=== PATIENT | female | born 1950 | race Caucasian/White ===

== ENCOUNTER → 2017-03-17 | Outpatient (CLI) | payer MEDICARE ==
[2017-03-17 12:16] LABS: ABSOLUTE BASOPHILS # (AUTO) 0.1 10^3/uL (0.0-0.2); ABSOLUTE EOSINOPHILS # (AUTO) 0.2 10^3/uL (0.0-0.6); ABSOLUTE LYMPHOCYTES (AUTO) 1.7 10^3/uL (0.5-4.7); ABSOLUTE MONOCYTES (AUTO) 0.5 10^3/uL (0.1-1.4); ABSOLUTE NEUT (AUTO) 3.5 10^3/uL (1.7-8.2); BASOPHILS % (AUTO) 0.9 % (0-2); EOSINOPHILS % (AUTO) 3.4 % (0-6); HEMATOCRIT 42.2 % (36.0-47.0); HEMOGLOBIN 13.3 g/dL (12.0-15.5); HGB HCT DIFFERENCE -2.3; LYMPHOCYTES % (AUTO) 28.7 % (13-45); MEAN CORPUSCULAR HEMOGLOBIN 28.5 pg (27.0-33.4); MEAN CORPUSCULAR HGB CONC 31.4 g/dL (32.0-36.0); MEAN CORPUSCULAR VOLUME 91 fl (80-97); MONOCYTES % (AUTO) 8.9 % (3-13); RED BLOOD COUNT 4.65 10^6/uL (3.72-5.28); RED CELL DISTRIBUTION WIDTH 14.1 % (11.5-14.0); SEGMENTED NEUTROPHILS % (AUTO) 58.1 % (42-78); WHITE BLOOD COUNT 6.1 10^3/uL (4.0-10.5)
[2017-03-17 12:25] LABS: APPEARANCE,URINE SLIGHTLY-CLOUDY; BILIRUBIN,URINE NEGATIVE (NEGATIVE); GLUCOSE, URINE NEGATIVE (NEGATIVE); KETONES,URINE NEGATIVE (NEGATIVE); LEUKOCYTE ESTERASE,URINE NEGATIVE (NEGATIVE); NITRITE,URINE NEGATIVE (NEGATIVE); PROTEIN,URINE NEGATIVE (NEGATIVE); URINE SPECIFIC GRAVITY 1.016; UROBILINOGEN,URINE NEGATIVE mg/dL (<2.0)
--- NOTE | 2017-03-17 12:34 | RADIOLOGY REPORT (SQ) ---
EXAM DESCRIPTION: CHEST PA/LATERAL COMPLETED DATE/TIME: 03/17/2017 11:10 am REASON FOR STUDY: ENCOUNTER FOR OTHER PREPROCEDURAL EXAMINATION COMPARISON: 04/18/2015 EXAM PARAMETERS: NUMBER OF VIEWS: two views TECHNIQUE: Digital Frontal and Lateral radiographic views of the chest acquired. RADIATION DOSE: NA LIMITATIONS: none FINDINGS: LUNGS AND PLEURA: No opacities, masses or pneumothorax. No pleural effusion. MEDIASTINUM AND HILAR STRUCTURES: No masses or contour abnormalities. HEART AND VASCULAR STRUCTURES: Heart normal size. No evidence for failure. BONES: No acute findings. HARDWARE: None in the chest. OTHER: No other significant finding. IMPRESSION: NO SIGNIFICANT RADIOGRAPHIC FINDING IN THE CHEST. TECHNICAL DOCUMENTATION: JOB ID: [id number] [employer]- All Rights Reserved
--- NOTE | 2017-03-17 12:45 | EKG REPORT ---
SEVERITY:- NORMAL ECG - SINUS RHYTHM : Confirmed by: Annel Pride MD 17-Mar-2017 12:44:19
[2017-03-17 12:50] LABS: ANION GAP 10 (5-19); BLOOD UREA NITROGEN 37 mg/dL (7-20); CALCIUM 9.1 mg/dL (8.4-10.2); CARBON DIOXIDE 28 mmol/L (22-30); CHLORIDE 102 mmol/L (98-107); CREATININE RESULT 1.23 mg/dL (0.52-1.25); GLUCOSE 78 mg/dL (75-110); POTASSIUM 4.7 mmol/L (3.6-5.0); SODIUM 140.4 mmol/L (137-145)
== END ==
LOC: OD 10:27
PROVIDERS: ATTEND Orthopaedic Surgery
DX: Z01.818 Encounter for other preprocedural examination (principal)
CPT/HCPCS: 36415; 71020; 80048; 81001; 85025; 93005; 93010

== ENCOUNTER 2017-04-13 05:30 | Inpatient (IN) | payer MEDICARE, OTHER ==
[~2017-04-13 05:30] MED LIST: BUPIVACAINE INJ/PF LIPOSOME/PF 266 MG/20 ML SDV IJ PRN; CEFAZOLIN INJ 1 GM VIAL IV PRN; IBUPROFEN 800 MG/NS 250 ML IV PRN; LACTATED RINGERS 1000 ML IV PRN; LANSOPRAZOLE 15 MG TAB.RAP.DR PO PRN; LIDOCAINE 0.5% INJ-PF (5 MG/ML) 50 ML SDV SUBCUT PRN; OXYCODONE HCL SR 10 MG TABLET PO PRN; SCOPOLAMINE HYDROBROMIDE 1.5 MG PATCH.TD72 TOP PRN; VANCOMYCIN HCL 1,000 MG in DEXTROSE 5%-WATER 250 ML IV PRN
[2017-04-13] MEDS ORDERED: TRANEXAMIC ACID INJ/PF 1,000 MG/10 ML SDV IV ONE ×3 (06:51→10:00)
[2017-04-13] MEDS ORDERED: PROPOFOL INJ 200 MG/20 ML VIAL IV ONE (06:51)
[2017-04-13] MEDS ORDERED: MORPHINE SULFATE 10 MG/ML INJ ONE (06:51)
[2017-04-13] MEDS ORDERED: MIDAZOLAM 2 MG/2 ML INJ ONE (06:51)
[2017-04-13] MEDS ORDERED: THROMBIN (BOVINE) 5000 UNIT EPITAXIS KIT ONE (06:56)
[2017-04-13] MEDS ORDERED: THROMBIN (BOVINE) TOPICAL 20000 UNIT VIAL ONE (06:56)
[2017-04-13] MEDS ORDERED: BUPIVACAINE INJ/PF LIPOSOME/PF 266 MG/20 ML SDV ONE (06:56)
[2017-04-13] MEDS ORDERED: PROMETHAZINE HCL INJ 25 MG/1 ML VIAL IV PRN (07:59)
[2017-04-13] MEDS ORDERED: DIPHENHYDRAMINE HCL 50 MG/ML VIAL IV PRN ×2 (07:59→08:42)
[2017-04-13] MEDS ORDERED: FENTANYL CITRATE INJ/PF 100 MCG/2 ML AMPUL IV PRN ×3 (07:59)
[2017-04-13] MEDS ORDERED: MORPHINE SULFATE 10 MG/ML INJ IV PRN ×3 (07:59→08:42)
[2017-04-13] MEDS ORDERED: ONDANSETRON HCL INJ/PF 4 MG/2 ML SDV IV PRN ×3 (07:59→10:44)
[2017-04-13] MEDS ORDERED: MEPERIDINE HCL/PF INJ 25 MG/1 ML DISP.SYRIN IV PRN (07:59)
--- NOTE | 2017-04-13 08:41 | Operative Report ---
Operative Report DATE OF SURGERY: 04/13/17 PREOPERATIVE DIAGNOSIS: Left knee arthritis OPERATION: Left knee arthroplasty SURGEON: NOHEMI CHEUNG ANESTHESIA: Spinal TISSUE REMOVED OR ALTERED: Bone to pathology ESTIMATED BLOOD LOSS: 150 PROCEDURE: Implants used: Femur: Maribeth triathlon #6 CR femur Tibia: 6 tibia Tibial liner: 11 mm CS insert Patella: 32 mm oval patella Procedure with the patient supine on the operating table the left the limb is prepped and draped in a sterile fashion. The limb was elevated for exsanguination and the tourniquet inflated to 280 torr. A standard midline median parapatellar approach the knee is taken. Access is gained to the femoral canal through the intercondylar notch. Intramedullary alignment instrumentation used to resect 10 mm of distal femur in 5 of valgus. Sizing guide indicated a size 6 femur. Appropriate cutting jig is then used to fashion anterior posterior and chamfer cuts. A trial reduction femurs performed and this is judged to be adequate. Attention was next turned to the tibia. Using an extra medullary alignment system 9 millimeters was resected off the lateral tibial plateau. This is sized to a size 6 tibia. A trial reduction was now performed with a 6 femur and a 6 tibia using a 11 millimeters spacer. It is full extension and central patellofemoral tracking. The articular surface the patella was next resected using an oscillating saw. All trial implants were removed. Polymethylmethacrylate is mixed and used to cement the above implants in place. On adequate curing the cement excess cement was removed the tourniquet was deflated hemostasis obtained the wound is then closed in layers using interrupted Vicryl followed by berenice. A sterile compressive dressing was applied and the patient returned to recovery room in satisfactory condition.
[2017-04-13] MEDS ORDERED: MAG HYDROX/AL HYDROX/SIMETH SUSP 30 ML UDCUP PO PRN ×2 (08:42→10:42)
[2017-04-13] MEDS ORDERED: RINGERS SOLUTION,LACTATED 1,000 ML IV PRN (08:42)
[2017-04-13] MEDS ORDERED: MORPHINE SULFATE 10 MG/ML INJ IM PRN (08:42)
[2017-04-13] MEDS ORDERED: ACETAMINOPHEN 325 MG TABLET PO PRN (08:42)
[2017-04-13] MEDS ORDERED: ZOLPIDEM TARTRATE 5 MG TABLET PO PRN (08:42)
[2017-04-13] MEDS ORDERED: ONDANSETRON 4 MG TAB.RAPDIS PO PRN ×2 (08:42→10:44)
--- NOTE | 2017-04-13 09:52 | RADIOLOGY REPORT (SQ) ---
EXAM DESCRIPTION: KNEE LEFT 2 VIEWS COMPLETED DATE/TIME: 04/13/2017 9:10 am REASON FOR STUDY: Post OP -Long Cassette in PACU M17.12 UNILATERAL PRIMARY OSTEOARTHRITIS, LEFT KNE E COMPARISON: 09/10/2015 NUMBER OF VIEWS: Two view(s). TECHNIQUE: Digital radiographic images of the left knee post-procedure. LIMITATIONS: None. FINDINGS: BONES: No worrisome or unexpected findings post-procedure. DEVICE: Total knee arthroplasty. SOFT TISSUES: No worrisome findings. Expected postoperative soft tissue changes. IMPRESSION: Status post left total knee replacement TECHNICAL DOCUMENTATION: JOB ID: [id number] [employer]- All Rights Reserved
[2017-04-13] MEDS: OXYBUTYNIN CHLORIDE 5 MG TABLET PO SCH ×2 (10:23→17:19)
[2017-04-13] MEDS: LISINOPRIL 10 MG TABLET PO SCH (10:23)
[2017-04-13] MEDS: OXYCODONE HCL SR 10 MG TABLET PO SCH ×3 (10:55→21:11)
[2017-04-13] MEDS: SENNOSIDES/DOCUSATE 8.6-50 MG 1 EACH TABLET PO SCH ×2 (10:55→17:18)
[2017-04-13] MEDS: PRENATAL VITAMIN W-O CA NO5/FE FUMARATE/FA CAPSULE PO SCH (10:55)
[2017-04-13] MEDS: MORPHINE SULFATE 10 MG/ML INJ IV PRN ×3 (12:49→21:07)
[2017-04-13] MEDS: IBUPROFEN 800 MG in NORMAL SALINE 250 ML IV SCH ×2 (14:05→21:06)
[2017-04-13] MEDS: OXYCODONE HCL IR 5 MG TABLET PO PRN (17:19)
[2017-04-13] MEDS ORDERED: (PENDING PHARMACY ID) (Lovastatin [Mevacor] 10 MG) PO SCH (18:00)
[2017-04-13] MEDS ORDERED: VANCOMYCIN HCL 1,000 MG in DEXTROSE 5%-WATER 250 ML IV ONE (21:00)
[2017-04-13] MEDS: RIVAROXABAN 10 MG TABLET PO SCH (21:07)
[2017-04-14] MEDS: LANSOPRAZOLE 30 MG TAB.RAP.DR PO SCH (05:52)
[2017-04-14] MEDS: IBUPROFEN 800 MG in NORMAL SALINE 250 ML IV SCH ×3 (05:53→21:23)
[2017-04-14 07:06] LABS: HEMATOCRIT 38.3 % (36.0-47.0); HEMOGLOBIN 12.4 g/dL (12.0-15.5); HGB HCT DIFFERENCE -1.1; MEAN CORPUSCULAR HEMOGLOBIN 29.2 pg (27.0-33.4); MEAN CORPUSCULAR HGB CONC 32.4 g/dL (32.0-36.0); MEAN CORPUSCULAR VOLUME 90 fl (80-97); RED BLOOD COUNT 4.25 10^6/uL (3.72-5.28); RED CELL DISTRIBUTION WIDTH 13.9 % (11.5-14.0); WHITE BLOOD COUNT 8.4 10^3/uL (4.0-10.5)
[2017-04-14 07:34] LABS: ANION GAP 10 (5-19); BLOOD UREA NITROGEN 29 mg/dL (7-20); CALCIUM 8.7 mg/dL (8.4-10.2); CARBON DIOXIDE 26 mmol/L (22-30); CHLORIDE 101 mmol/L (98-107); CREATININE RESULT 1.24 mg/dL (0.52-1.25); GLUCOSE 129 mg/dL (75-110); POTASSIUM 5.1 mmol/L (3.6-5.0); SODIUM 136.9 mmol/L (137-145)
--- NOTE | 2017-04-14 07:54 | PDOC PROGRESS REPORT ---
Subjective Progress Note for:: 04/14/17 Subjective:: Complains of expected discomfort Physical Exam Vital Signs: Temp Pulse Resp BP Pulse Ox 36.7 C 81 18 112/64 97 04/14/17 03:27 04/14/17 03:27 04/14/17 03:27 04/14/17 03:27 04/14/17 03:27 Intake & Output 04/13/17 04/14/17 04/15/17 06:59 06:59 06:59 Intake Total 0 5850 Output Total 3380 Balance 0 2470 Weight 160.9 kg General appearance: PRESENT: mild distress, obese Head exam: PRESENT: normocephalic Eye exam: PRESENT: EOMI Respiratory exam: PRESENT: unlabored Cardiovascular exam: PRESENT: RRR Pulses: PRESENT: +1 pedal pulses bilateral Vascular exam: PRESENT: normal capillary refill GI/Abdominal exam: PRESENT: soft Rectal exam: PRESENT: deferred Extremities exam: PRESENT: other - Left lower extremity dressing is clean dry and intact. Pedal edema. Distal neurovascular examination is intact. Neurological exam: PRESENT: alert, awake, oriented to person, oriented to place , oriented to time, oriented to situation. ABSENT: motor sensory deficit Psychiatric exam: PRESENT: appropriate affect, normal mood. ABSENT: homicidal ideation, suicidal ideation Skin exam: PRESENT: dry, intact, warm. ABSENT: cyanosis, rash Results Laboratory Results: 04/14/17 06:56 04/14/17 06:56 04/14/17 04/14/17 06:56 06:56 WBC 8.4 RBC 4.25 Hgb 12.4 Hct 38.3 MCV 90 MCH 29.2 MCHC 32.4 RDW 13.9 Plt Count 187 Sodium 136.9 L Potassium 5.1 H Chloride 101 Carbon Dioxide 26 Anion Gap 10 BUN 29 H Creatinine 1.24 Est GFR ( Amer) 52 L Est GFR (Non-Af Amer) 43 L Glucose 129 H Calcium 8.7 Impressions: Knee X-Ray 04/13/17 08:43 IMPRESSION: Status post left total knee replacement Status: Imported from PACS Assessment & Plan - Diagnosis (1) Arthritis of knee, left Is this a current diagnosis for this admission?: YesPlan: 6-year-old white female postop day 1 from left knee arthroplasty.. Plan for physical therapy today and anticipate discharge home tomorrow with home health nursing. - Time Time Spent with patient: 15-24 minutes Anticipated discharge: Home with Homehealth Within: within 24 hours
[2017-04-14] MEDS ORDERED: (PENDING PHARMACY ID) (Lisinopril [Lisinopril] 20 MG) PO SCH (08:00)
[2017-04-14] MEDS: OXYCODONE HCL IR 5 MG TABLET PO PRN ×2 (08:51→15:28)
[2017-04-14] MEDS: MONTELUKAST SODIUM 10 MG TABLET PO SCH (08:52)
[2017-04-14] MEDS: OXYCODONE HCL SR 10 MG TABLET PO SCH ×2 (10:11→21:21)
[2017-04-14] MEDS: SENNOSIDES/DOCUSATE 8.6-50 MG 1 EACH TABLET PO SCH ×2 (10:12→17:40)
[2017-04-14] MEDS: PRENATAL VITAMIN W-O CA NO5/FE FUMARATE/FA CAPSULE PO SCH (10:12)
[2017-04-14] MEDS: LISINOPRIL 10 MG TABLET PO SCH (10:13)
[2017-04-14] MEDS: OXYBUTYNIN CHLORIDE 5 MG TABLET PO SCH ×2 (10:19→17:41)
[2017-04-14] MEDS: MORPHINE SULFATE 10 MG/ML INJ IV PRN (13:32)
[2017-04-14] MEDS: RIVAROXABAN 10 MG TABLET PO SCH (21:21)
[2017-04-15] MEDS: IBUPROFEN 800 MG in NORMAL SALINE 250 ML IV SCH ×2 (05:05→15:11)
[2017-04-15] MEDS: LANSOPRAZOLE 30 MG TAB.RAP.DR PO SCH (05:56)
[2017-04-15 06:30] LABS: HEMATOCRIT 34.3 % (36.0-47.0); HEMOGLOBIN 11.2 g/dL (12.0-15.5); HGB HCT DIFFERENCE -0.7; MEAN CORPUSCULAR HEMOGLOBIN 28.9 pg (27.0-33.4); MEAN CORPUSCULAR HGB CONC 32.7 g/dL (32.0-36.0); MEAN CORPUSCULAR VOLUME 88 fl (80-97); RED BLOOD COUNT 3.88 10^6/uL (3.72-5.28); RED CELL DISTRIBUTION WIDTH 14.1 % (11.5-14.0); WHITE BLOOD COUNT 8.6 10^3/uL (4.0-10.5)
--- NOTE | 2017-04-15 07:36 | PDOC PROGRESS REPORT ---
Subjective Progress Note for:: 04/15/17 Subjective:: Patient complains of pain Physical Exam Vital Signs: Temp Pulse Resp BP Pulse Ox 37.1 C 83 19 115/80 95 04/14/17 23:22 04/14/17 23:22 04/14/17 23:22 04/14/17 23:22 04/14/17 23:22 Intake & Output 04/14/17 04/15/17 04/16/17 06:59 06:59 06:59 Intake Total 5850 891 Output Total 3380 Balance 2470 891 Weight 160.9 kg General appearance: PRESENT: obese Head exam: PRESENT: normocephalic Eye exam: PRESENT: EOMI Respiratory exam: PRESENT: unlabored Cardiovascular exam: PRESENT: RRR Pulses: PRESENT: +1 pedal pulses bilateral Vascular exam: PRESENT: normal capillary refill GI/Abdominal exam: PRESENT: soft Rectal exam: PRESENT: deferred Extremities exam: PRESENT: pedal edema, other - Left knee picot dressing is clean dry and intact. There is moderate pedal edema. Distal neurovascular examination is intact. Neurological exam: PRESENT: alert, awake, oriented to person, oriented to place , oriented to time, oriented to situation. ABSENT: motor sensory deficit Psychiatric exam: PRESENT: appropriate affect, normal mood. ABSENT: homicidal ideation, suicidal ideation Skin exam: PRESENT: dry, intact, warm. ABSENT: cyanosis, rash Results Laboratory Results: 04/15/17 06:18 04/14/17 06:56 04/14/17 04/15/17 06:56 06:18 WBC 8.6 RBC 3.88 Hgb 11.2 L Hct 34.3 L MCV 88 MCH 28.9 MCHC 32.7 RDW 14.1 H Plt Count 164 Sodium 136.9 L Potassium 5.1 H Chloride 101 Carbon Dioxide 26 Anion Gap 10 BUN 29 H Creatinine 1.24 Est GFR ( Amer) 52 L Est GFR (Non-Af Amer) 43 L Glucose 129 H Calcium 8.7 Impressions: Knee X-Ray 04/13/17 08:43 IMPRESSION: Status post left total knee replacement Assessment & Plan - Diagnosis (1) Arthritis of knee, left Is this a current diagnosis for this admission?: YesPlan: The 6-year-old white female postop day #2 status post left knee arthroplasty. The patient's made slow steady progress with physical therapy and ambulated 20 feet yesterday. Hematocrit remains above 34%. - Plan Summary Plan Summary: Patient discharged home with home health nursing and home health physical therapy when the patient's reached acceptable functional levels
[2017-04-15] MEDS: OXYBUTYNIN CHLORIDE 5 MG TABLET PO SCH ×2 (10:56→18:20)
[2017-04-15] MEDS: PRENATAL VITAMIN W-O CA NO5/FE FUMARATE/FA CAPSULE PO SCH (10:56)
[2017-04-15] MEDS: MONTELUKAST SODIUM 10 MG TABLET PO SCH (10:57)
[2017-04-15] MEDS: LISINOPRIL 10 MG TABLET PO SCH (10:58)
[2017-04-15] MEDS: OXYCODONE HCL IR 5 MG TABLET PO PRN (10:59)
[2017-04-15] MEDS: SENNOSIDES/DOCUSATE 8.6-50 MG 1 EACH TABLET PO SCH ×2 (10:59→18:20)
[2017-04-15] MEDS: MORPHINE SULFATE 10 MG/ML INJ IV PRN (15:05)
[2017-04-15] MEDS: RIVAROXABAN 10 MG TABLET PO SCH (21:42)
[2017-04-16] MEDS: LANSOPRAZOLE 30 MG TAB.RAP.DR PO SCH (05:18)
[2017-04-16 06:39] LABS: HEMATOCRIT 32.2 % (36.0-47.0); HEMOGLOBIN 10.6 g/dL (12.0-15.5); HGB HCT DIFFERENCE -0.4; MEAN CORPUSCULAR HEMOGLOBIN 29.1 pg (27.0-33.4); MEAN CORPUSCULAR VOLUME 88 fl (80-97); RED BLOOD COUNT 3.65 10^6/uL (3.72-5.28); RED CELL DISTRIBUTION WIDTH 13.9 % (11.5-14.0); WHITE BLOOD COUNT 7.3 10^3/uL (4.0-10.5)
--- NOTE | 2017-04-16 07:04 | PDOC DISCHARGE SUMMARY ---
General - Admit/Disc Date/PCP Admission Date/Primary Care Provider: 04/13/17 05:30 Discharge Date: 04/16/17 - Discharge Diagnosis (1) Arthritis of knee, left Is this a current diagnosis for this admission?: Yes - Additional Information Resuscitation Status: Full Code Discharge Diet: As Tolerated, Regular Discharge Activity: Balance Activity w/Rest, No Driving, No tub bath Home Medications: Albuterol Sulfate [Albuterol Sulfate 2.5mg/3 mL] 1 vial IH Q4 PRN 11/01/14 Lisinopril 20 mg PO QAM 11/01/14 Lovastatin [Mevacor] 10 mg PO QPM 11/01/14 Oxybutynin Chloride 5 mg PO BIDP PRN 11/01/14 Meloxicam 7.5 mg PO QAM 04/16/15 Budesonide/Formoterol Fumarate [Symbicort HFA 80-4.5 mcg Inhaler 6.9 gm] 2 puff IH BID 04/01/17 Montelukast Sodium [Singulair 10 mg Tablet] 10 mg PO QAM 04/01/17 Econazole Nitrate [Spectazole] 1 applic TP BID 04/13/17 Oxycodone HCl [Oxy-Ir 5 mg Tablet] 5 mg PO Q6HP PRN #0 tablet 04/16/17 Rivaroxaban [Xarelto 10 mg Tablet] 10 mg PO QHS #0 tablet 04/16/17 History of Present Illness History of Present Illness: LILIA HERNANDEZ is a 66 year old female with left knee pain and functional disability secondary osteoarthritis. The patient is admitted for the left a elective left knee arthroplasty. Hospital Course Hospital Course: Through the operating room where she undergoes uncomplicated left knee arthroplasty. She is returned to the floor in satisfactory condition. She makes progress with physical therapy and weightbearing as tolerated basis patient examining 60 feet on the postop day 2. Physical Exam Vital Signs: Temp Pulse Resp BP Pulse Ox 37.0 C 95 19 96/49 L 97 04/15/17 23:05 04/15/17 23:05 04/15/17 23:05 04/15/17 23:05 04/15/17 23:05 Intake & Output 04/15/17 04/16/17 04/17/17 06:59 06:59 06:59 Intake Total 891 1444 Output Total 1185 Balance 891 259 General appearance: PRESENT: no acute distress, obese Head exam: PRESENT: normocephalic Eye exam: PRESENT: EOMI Respiratory exam: PRESENT: unlabored Cardiovascular exam: PRESENT: RRR Pulses: PRESENT: +1 pedal pulses bilateral Vascular exam: PRESENT: normal capillary refill GI/Abdominal exam: PRESENT: soft Rectal exam: PRESENT: deferred Extremities exam: PRESENT: other - Left lower extremity picot dressing with minor cold drainage. Minimal pedal edema. Distal neurovascular examination is intact. Neurological exam: PRESENT: alert, awake, oriented to person, oriented to place , oriented to time, oriented to situation. ABSENT: motor sensory deficit Psychiatric exam: PRESENT: appropriate affect, normal mood. ABSENT: homicidal ideation, suicidal ideation Skin exam: PRESENT: dry, intact, warm. ABSENT: cyanosis, rash Results Laboratory Results: 04/14/17 06:56 Impressions: Knee X-Ray 04/13/17 08:43 IMPRESSION: Status post left total knee replacement Status: Imported from PACS Plan Discharge Plan: Discharge home with home health nursing, home health physical therapy, wheeled walker, bedside commode. Left knee picot dressing can be changed by the visiting nurse service on postop day 7 and replaced with an OpSite. Follow-up will be with Dr. Aguilar and [facility] for surgery in 2 weeks for staple removal.
[2017-04-16] MEDS: MONTELUKAST SODIUM 10 MG TABLET PO SCH (08:09)
[2017-04-16 08:31] VITALS: BP 115/75
[2017-04-16] MEDS: SENNOSIDES/DOCUSATE 8.6-50 MG 1 EACH TABLET PO SCH (09:27)
[2017-04-16] MEDS: OXYBUTYNIN CHLORIDE 5 MG TABLET PO SCH (09:27)
[2017-04-16] MEDS: OXYCODONE HCL IR 5 MG TABLET PO PRN (09:27)
[2017-04-16] MEDS: PRENATAL VITAMIN W-O CA NO5/FE FUMARATE/FA CAPSULE PO SCH (09:27)
[2017-04-16] MEDS: LISINOPRIL 10 MG TABLET PO SCH (09:27)
[2017-04-16] MEDS ORDERED: ZOLPIDEM TARTRATE 5 MG TABLET PO PRN (14:30)
[2017-04-16] MEDS ORDERED: MORPHINE SULFATE 10 MG/ML INJ IV PRN (14:30)
[2017-04-16] MEDS ORDERED: MORPHINE SULFATE 10 MG/ML INJ IM PRN (14:31)
== END 2017-04-16 10:50 | disposition home health service (06) | DRG 470 ==
LOC: INOR 05:30 → 4S 10:09
PROVIDERS: ADMIT Orthopaedic Surgery; ATTEND Orthopaedic Surgery
PROC: 0SRD0J9 Replacement of Left Knee Joint with Synthetic Substitute, Cemented, Open Approach (ICD-10-PCS; principal; 2017-04-13 07:30)
DX: M17.12 Unilateral primary osteoarthritis, left knee (principal); Z68.43 Body mass index [BMI] 50.0-59.9, adult; I10 Essential (primary) hypertension; E78.00 Pure hypercholesterolemia, unspecified; E66.9 Obesity, unspecified; Z96.651 Presence of right artificial knee joint
CPT/HCPCS: 01402; 36415; 80048; 85027; 88305; 88311; 94799; C9290; G8978-GP; G8979-GP; G8987-GO; G8988-GO; J0690; J1741; J2250; J2270; J2405; J2704; J3370; J3490; J7050; J7060; J7120

== ENCOUNTER 2017-04-27 06:39 | Inpatient (IN) | payer MEDICARE, OTHER ==
--- NOTE | 2017-04-27 07:06 | ER Document Report ---
ED General - General Stated Complaint: POST OP BLEEDING Time Seen by Provider: 04/27/17 06:50 Mode of Arrival: Medic Information source: Patient Notes: 66-year-old female who had knee replacement performed on the had berenice removed on the and is on Xarelto presents with complaints of bleeding from her left knee. Patient denies any fevers or chills admits to pain in the knee patient states she was placed on antibiotics by her surgeon is unsure of which one, stated it was in the bag but is not noted to be there Patient took her Xarelto today TRAVEL OUTSIDE OF THE [place] IN LAST 30 DAYS: No - HPI Onset: Just prior to arrival Onset/Duration: Sudden Quality of pain: Achy Severity: Mild Pain Level: 1 Associated symptoms: None Exacerbated by: Movement Relieved by: Denies Similar symptoms previously: Yes Recently seen / treated by doctor: Yes - Related Data Allergies/Adverse Reactions: aspirin [Aspirin] Allergy (Verified 04/01/17 11:41) Unsure Home Medications: Current Home Medications Hydrocodone Bit/Acetaminophen [Hydrocodon-Acetaminophen 5-325] 1 each PO Q6 PRN 04/27/17 [History] Past Medical History - Social History Smoking Status: Never Smoker Cigarette use (# per day): No Chew tobacco use (# tins/day): No Smoking Education Provided: No Family History: Reviewed & Not Pertinent - Past Medical History Cardiac Medical History: Reports: Hx Hypercholesterolemia, Hx Hypertension Denies: Hx Atrial Fibrillation, Hx Congestive Heart Failure, Hx Coronary Artery Disease, Hx Heart Attack, Hx Peripheral Vascular Disease, Hx Pulmonary Embolism, Hx Heart Murmur Pulmonary Medical History: Reports: Hx Asthma, Hx Bronchitis, Hx Sleep Apnea Denies: Hx COPD, Hx Pneumonia, Hx Respiratory Failure, Hx Tuberculosis Renal/ Medical History: Denies: Hx End Stage Renal Disease, Hx Kidney Stones, Hx Peritoneal Dialysis Malignancy Medical History: Denies: Hx Lung Cancer Musculoskeltal Medical History: Reports Hx Arthritis, Denies Hx Fibromyalgia, Denies Hx Muscular Dystrophy Traumatic Medical History: Reports: Hx Fractures - left? foot Past Surgical History: Reports: Hx Tonsillectomy. Denies: Hx Appendectomy, Hx Bowel Surgery, Hx Section, Hx Cholecystectomy, Hx Coronary Artery Bypass Graft, Hx Gastric Bypass Surgery, Hx Herniorrhaphy, Hx Hysterectomy, Hx Mastectomy, Hx Pacemaker, Hx Tubal Ligation - Immunizations Hx Diphtheria, Pertussis, Tetanus Vaccination: Yes Review of Systems - Review of Systems Notes: REVIEW OF SYSTEMS: CONSTITUTIONAL : Denies fever, chills, or sweats. Denies recent illness. EENT: Denies eye, ear, throat, or mouth pain or symptoms. Denies nasal or sinus congestion or discharge. Denies throat, tongue, or mouth swelling or difficulty swallowing. CARDIOVASCULAR: Denies chest pain. Denies palpitations or racing or irregular heart beat. Denies ankle edema. RESPIRATORY: Denies cough, cold, or chest congestion. Denies shortness of breath, difficulty breathing, or wheezing. GASTROINTESTINAL: Denies abdominal pain or distention. Denies nausea, vomiting , or diarrhea. Denies blood in vomitus, stools, or per rectum. Denies black, tarry stools. Denies constipation. GENITOURINARY: Denies difficulty urinating, painful urination, burning, frequency, blood in urine, or discharge. FEMALE GENITOURINARY: Denies vaginal bleeding, heavy or abnormal periods, irregular periods. Denies vaginal discharge or odor. MUSCULOSKELETAL: admits ot bleeding to knee SKIN: Denies rash, lesions or sores. HEMATOLOGIC : Denies easy bruising or bleeding. LYMPHATIC: Denies swollen, enlarged glands. NEUROLOGICAL: Denies confusion or altered mental status. Denies passing out or loss of consciousness. Denies dizziness or lightheadedness. Denies headache. Denies weakness or paralysis or loss of use of either side. Denies problems with gait or speech. Denies sensory loss, numbness, or tingling. Denies seizures. PSYCHIATRIC: Denies anxiety or stress. Denies depression, suicidal ideation, or homicidal ideation. ALL OTHER SYSTEMS REVIEWED AND NEGATIVE. PHYSICAL EXAMINATION: GENERAL: Well-appearing, well-nourished and in no acute distress. HEAD: Atraumatic, normocephalic. EYES: Pupils equal round and reactive to light, extraocular movements intact, conjunctiva are normal. ENT: Nares patent, oropharynx clear without exudates. Moist mucous membranes. NECK: Normal range of motion, supple without lymphadenopathy LUNGS: Breath sounds clear to auscultation bilaterally and equal. No wheezes rales or rhonchi. HEART: Regular rate and rhythm without murmurs ABDOMEN: Soft, nontender, nondistended abdomen. No guarding, no rebound. No masses appreciated. Female : deferred Musculoskeletal: left knee strips are in place, small amount of oozing noted, it is erythemetous and tender to palpation NEUROLOGICAL: Cranial nerves grossly intact. Normal speech, normal gait. Normal sensory, motor exams PSYCH: Normal mood, normal affect. SKIN: Warm, Dry, normal turgor, no rashes or lesions noted. Dictation was performed using [employer] voice recognition software Physical Exam - Vital signs Vitals: Temp Resp BP Pulse Ox 97.6 F 11 L 118/59 L 96 04/27/17 06:59 04/27/17 06:59 04/27/17 06:59 04/27/17 06:59 Course - Re-evaluation Re-evalutation: 04/27/17 07:06 Patient's bleeding is well controlled at this time, however my concern is if there is infectious process associated with this. Lab work is pending at this time 04/27/17 08:02 Labwork is consistent with an infectious process, white count was 26,000, there is a bandemia of 15. I spoke with Dr. Choi who will admit the patient to his service, he requests I hold off on antibiotics at this time - Vital Signs Vital signs: Temp Pulse Resp BP Pulse Ox 97.6 F 14 96/52 L 97 04/27/17 06:59 04/27/17 07:46 04/27/17 07:46 04/27/17 07:46 - Laboratory Result Diagrams: 04/27/17 07:00 04/27/17 07:00 Laboratory results interpreted by me: 04/27/17 04/27/17 07:00 07:00 WBC 25.7 H RBC 3.65 L Hgb 10.8 L Hct 32.1 L Seg Neuts % (Manual) 82 H Band Neutrophils % 15 H Lymphocytes % (Manual) 0 L Abs Neuts (Manual) 24.9 H Abs Lymphs (Manual) 0.0 L ESR 53 H BUN 31 H Creatinine 1.49 H Est GFR ( Amer) 42 L Est GFR (Non-Af Amer) 35 L Glucose 127 H C-Reactive Protein 68.3 H Total Protein 6.2 L Albumin 3.3 L - Diagnostic Test Radiology reviewed: Image reviewed, Reports reviewed Critical Care Note - Critical Care Note Total time excluding time spent on procedures (mins): 34 Comments: 34 minutes of critical care time spent in direct contact evaluating and reevaluating the patient, treating symptoms, reviewing labs and studies and speaking with family and consultants excluding any procedures Discharge - Discharge Clinical Impression: Bandemia, bleeding on xarelto Cellulitis Qualifiers: Site of cellulitis: extremity Site of cellulitis of extremity: lower extremity Laterality: left Qualified Code(s): L03.116 - Cellulitis of left lower limb Condition: Fair Disposition: ADMITTED INPATIENT Admitting Provider: doretha Unit Admitted: Surgical Floor
[2017-04-27 07:21] LABS: HEMATOCRIT 32.1 % (36.0-47.0); HEMOGLOBIN 10.8 g/dL (12.0-15.5); HGB HCT DIFFERENCE 0.3; MEAN CORPUSCULAR HEMOGLOBIN 29.7 pg (27.0-33.4); MEAN CORPUSCULAR HGB CONC 33.7 g/dL (32.0-36.0); MEAN CORPUSCULAR VOLUME 88 fl (80-97); RED BLOOD COUNT 3.65 10^6/uL (3.72-5.28); RED CELL DISTRIBUTION WIDTH 13.7 % (11.5-14.0); WHITE BLOOD COUNT 25.7 10^3/uL (4.0-10.5)
[2017-04-27] MEDS ORDERED: MORPHINE SULFATE 10 MG/ML INJ IV ONE (07:25)
[2017-04-27 07:35] LABS: ALANINE AMINOTRANSFERASE 27 U/L (9-52); ALBUMIN 3.3 g/dL (3.5-5.0); ALKALINE PHOSPHATASE 78 U/L (38-126); ANION GAP 13 (5-19); ASPARTATE AMINO TRANSFERASE 20 U/L (14-36); BILIRUBIN,DIRECT 0.3 mg/dL (0.0-0.4); BILIRUBIN,TOTAL 1.2 mg/dL (0.2-1.3); BLOOD UREA NITROGEN 31 mg/dL (7-20); C-REACTIVE PROTEIN 68.3 mg/L (<10.0); CALCIUM 8.8 mg/dL (8.4-10.2); CARBON DIOXIDE 25 mmol/L (22-30); CHLORIDE 100 mmol/L (98-107); CREATININE RESULT 1.49 mg/dL (0.52-1.25); GLUCOSE 127 mg/dL (75-110); POTASSIUM 4.4 mmol/L (3.6-5.0); SODIUM 137.8 mmol/L (137-145); TOTAL PROTEIN 6.2 g/dL (6.3-8.2)
[2017-04-27 07:52] LABS: BAND NEUTROPHILS % (MANUAL) 15 % (3-5); BASOPHILS % (MANUAL) 0 % (0-2); EOSINOPHILS % (MANUAL) 0 % (0-6); LYMPHOCYTES % (MANUAL) 0 % (13-45); TOTAL CELLS COUNTED 100
[2017-04-27 07:53] LABS: RBC MORPHOLOGY COMMENT NORMO-CYTIC/CHROMIC; TOXIC GRANULATION 1+
[2017-04-27 07:58] LABS: ERYTHROCYTE SEDIMENTATION RATE 53 mm/hr (0-30)
[2017-04-27] MEDS ORDERED: VANCOMYCIN HCL INJ 1000 MG VIAL IV ONE (07:59)
[2017-04-27] MEDS ORDERED: PIPERACILLIN/TAZOBACTAM 3.375 GM VIAL IV ONE (07:59)
--- NOTE | 2017-04-27 08:59 | RADIOLOGY REPORT (SQ) ---
EXAM DESCRIPTION: KNEE LEFT 4 VIEW COMPLETED DATE/TIME: 04/27/2017 8:30 am REASON FOR STUDY: post surgical COMPARISON: 04/13/2017 TECHNIQUE: Four views left knee LIMITATIONS: None. FINDINGS: No acute fractures. Arthroplasty in place similar to prior study. Soft tissue swelling a nd trace air noted. IMPRESSION: Postoperative changes. TECHNICAL DOCUMENTATION: JOB ID: [id number] [employer]- All Rights Reserved
--- NOTE | 2017-04-27 09:05 | PDOC H&P ---
History of Present Illness Admission Date/PCP: 04/27/17 08:26 History of Present Illness: LILIA HERNANDEZ is a 66 year old female who is status post left knee arthroplasty on April 13, 2017. Today she had her berenice removed. On Thursday she began to have spontaneous drainage from her wound. The emergency room today viable with prescription to her inflammatory cells and a bandemia 15% Past Medical History Cardiac Medical History: Reports: Hyperlipidema, Hypertension Denies: Atrial Fibrillation, Congestive Heart Failure, Coronary Artery Disease, Myocardial Infarction, Peripheral Vascular Disease, Pulmonary Embolism , Heart Murmur Pulmonary Medical History: Reports: Asthma, Bronchitis, Sleep Apnea Denies: Chronic Obstructive Pulmonary Disease (COPD), Pneumonia, Respiratory Failure, Tuberculosis Renal/ Medical History: Denies: End Stage Renal Disease Malignancy Medical History: Denies: Lung Cancer Musculoskeltal Medical History: Reports: Arthritis Denies: Fibromyalgia Past Surgical History Past Surgical History: Reports: Orthopedic Surgery - Rigoberto knee replacement, left knee replacement 04/13/17, Tonsillectomy Denies: Amputation, Appendectomy, Section, Cholecystectomy, Coronary Artery Bypass Graft, Gastric Bypass Surgery, Herniorrhaphy, Hysterectomy, Mastectomy, Pacemaker, Tubal Ligation Social History Information Source: Patient, Emergency Med Personnel, Office, [facility] Records Smoking Status: Never Smoker Hx Recreational Drug Use: No Hx Prescription Drug Abuse: No Family History Family History: Reviewed & Not Pertinent Parental Family History Reviewed: No Children Family History Reviewed: No Sibling(s) Family History Reviewed.: No Medication/Allergy Home Medications: Lisinopril 20 mg PO QAM 11/01/14 Lovastatin [Mevacor] 10 mg PO QPM 11/01/14 Oxybutynin Chloride 5 mg PO BIDP PRN 11/01/14 Budesonide/Formoterol Fumarate [Symbicort HFA 80-4.5 mcg Inhaler 6.9 gm] 2 puff IH BID 04/01/17 Montelukast Sodium [Singulair 10 mg Tablet] 10 mg PO QAM 04/01/17 Rivaroxaban [Xarelto 10 mg Tablet] 10 mg PO QHS #0 tablet 04/16/17 Hydrocodone Bit/Acetaminophen [Hydrocodon-Acetaminophen 5-325] 1 each PO Q6 PRN 04/27/17 Allergies/Adverse Reactions: aspirin [Aspirin] Allergy (Verified 04/01/17 11:41) Unsure Review of Systems All systems: as per PMH Physical Exam Vital Signs: Temp Pulse Resp BP Pulse Ox 36.4 C 11 L 112/61 96 04/27/17 06:59 04/27/17 08:30 04/27/17 08:30 04/27/17 08:30 General appearance: PRESENT: mild distress, obese Head exam: PRESENT: normocephalic Eye exam: PRESENT: EOMI Respiratory exam: PRESENT: unlabored Cardiovascular exam: PRESENT: RRR Vascular exam: PRESENT: normal capillary refill GI/Abdominal exam: PRESENT: soft Rectal exam: PRESENT: deferred Extremities exam: PRESENT: other Musculoskeletal exam: PRESENT: other Neurological exam: PRESENT: alert, awake, oriented to person, oriented to place , oriented to time, oriented to situation. ABSENT: motor sensory deficit Psychiatric exam: PRESENT: appropriate affect, normal mood. ABSENT: homicidal ideation, suicidal ideation Skin exam: PRESENT: dry, intact, warm. ABSENT: cyanosis, rash Results Impressions: Knee X-Ray 04/27/17 07:59 IMPRESSION: Postoperative changes. Status: Imported from PACS Assessment & Plan - Diagnosis (1) Bandemia Is this a current diagnosis for this admission?: Yes (2) Cellulitis Qualifiers: Site of cellulitis: extremity Site of cellulitis of extremity: lower extremity Laterality: left Qualified Code(s): L03.116 - Cellulitis of left lower limb Is this a current diagnosis for this admission?: YesPlan: Patient is now 14 days status post left knee arthroplasty with serous drainage from the wound remains afebrile but has a bandemia. Plan will be for admission on 23 hour outpatient basis and observation. Patient is not to receive antibiotics at this time. (3) Arthritis of knee, left Is this a current diagnosis for this admission?: No - Time Time Spent: 50 to 70 Minutes Anticipated discharge: Home with Homehealth Within: Other - Plan Summary Plan Summary: 23 hour outpatient admission for observation
[2017-04-27] MEDS ORDERED: ONDANSETRON HCL INJ/PF 4 MG/2 ML SDV IV PRN (10:05)
[2017-04-27] MEDS: OXYCODONE HCL IR 5 MG TABLET PO PRN (18:03)
[2017-04-27] MEDS: RINGERS SOLUTION,LACTATED 1,000 ML IV PRN (18:31)
[2017-04-27] MEDS ORDERED: ACETAMINOPHEN 325 MG TABLET PO PRN (20:51)
[2017-04-28] MEDS: OXYCODONE HCL IR 5 MG TABLET PO PRN ×3 (00:58→18:36)
[2017-04-28 05:40] LABS: ABSOLUTE LYMPHOCYTES (AUTO) 1.1 10^3/uL (0.5-4.7); ABSOLUTE MONOCYTES (AUTO) 0.7 10^3/uL (0.1-1.4); BASOPHILS % (AUTO) 0.1 % (0-2); HEMATOCRIT 30.4 % (36.0-47.0); HEMOGLOBIN 10.1 g/dL (12.0-15.5); HGB HCT DIFFERENCE -0.1; LYMPHOCYTES % (AUTO) 5.4 % (13-45); MEAN CORPUSCULAR HGB CONC 33.2 g/dL (32.0-36.0); MEAN CORPUSCULAR VOLUME 90 fl (80-97); MONOCYTES % (AUTO) 3.6 % (3-13); RED BLOOD COUNT 3.37 10^6/uL (3.72-5.28); RED CELL DISTRIBUTION WIDTH 13.4 % (11.5-14.0); SEGMENTED NEUTROPHILS % (AUTO) 90.9 % (42-78); WHITE BLOOD COUNT 19.7 10^3/uL (4.0-10.5)
[2017-04-28 06:18] LABS: ERYTHROCYTE SEDIMENTATION RATE 85 mm/hr (0-30)
--- NOTE | 2017-04-28 06:58 | PDOC PROGRESS REPORT ---
Subjective Progress Note for:: 04/28/17 Subjective:: "I am doing better" Physical Exam Vital Signs: Temp Pulse Resp BP Pulse Ox 37.2 C 99 20 111/50 L 96 04/27/17 23:00 04/27/17 23:00 04/27/17 23:00 04/27/17 23:00 04/27/17 23:00 Intake & Output 04/26/17 04/27/17 04/28/17 06:59 06:59 06:59 Intake Total 1957 Output Total 400 Balance 1557 Weight 145.1 kg General appearance: PRESENT: no acute distress Respiratory exam: PRESENT: unlabored Cardiovascular exam: PRESENT: RRR Pulses: PRESENT: +1 pedal pulses bilateral Vascular exam: PRESENT: normal capillary refill GI/Abdominal exam: PRESENT: soft Rectal exam: PRESENT: deferred Extremities exam: PRESENT: other - Left lower extremity wound with persistent serosanguineous drainage. Neurological exam: PRESENT: alert, awake, oriented to person, oriented to place , oriented to time, oriented to situation. ABSENT: motor sensory deficit Psychiatric exam: PRESENT: appropriate affect, normal mood. ABSENT: homicidal ideation, suicidal ideation Skin exam: PRESENT: dry, intact, warm. ABSENT: cyanosis, rash Results Laboratory Results: 04/28/17 05:07 04/28/17 04/28/17 05:07 05:07 WBC 19.7 H RBC 3.37 L Hgb 10.1 L Hct 30.4 L MCV 90 MCH 30.0 MCHC 33.2 RDW 13.4 Plt Count 235 Seg Neutrophils % 90.9 H Lymphocytes % 5.4 L Monocytes % 3.6 Eosinophils % 0.0 Basophils % 0.1 Absolute Neutrophils 18.0 H Absolute Lymphocytes 1.1 Absolute Monocytes 0.7 Absolute Eosinophils 0.0 Absolute Basophils 0.0 C-Reactive Protein 409.0 H Impressions: Knee X-Ray 04/27/17 07:59 IMPRESSION: Postoperative changes. Status: Imported from PACS Assessment & Plan - Diagnosis (1) Bandemia Is this a current diagnosis for this admission?: Yes (2) Cellulitis Qualifiers: Site of cellulitis: extremity Site of cellulitis of extremity: lower extremity Laterality: left Qualified Code(s): L03.116 - Cellulitis of left lower limb Is this a current diagnosis for this admission?: Yes (3) Arthritis of knee, left Is this a current diagnosis for this admission?: NoPlan: 66-year-old white female postop from left knee arthroplasty approximately 2 weeks ago with persistent drainage, elevated inflammatory parameters and now a low-grade fever last night. Plan will be for I&D today with good deep cultures. No preoperative antibiotics. - Time Time Spent with patient: 15-24 minutes Anticipated discharge: Other Within: Other
[2017-04-28] MEDS: RINGERS SOLUTION,LACTATED 1,000 ML IV PRN (09:04)
[2017-04-28] MEDS: ASPIRIN 325 MG TABLET, ENT COATED PO SCH (10:03)
[2017-04-28] MEDS ORDERED: THROMBIN (BOVINE) TOPICAL 20000 UNIT VIAL ONE (11:18)
[2017-04-28] MEDS ORDERED: POLYMYXIN B SULFATE INJ 500000 UNIT VIAL ONE (11:18)
[2017-04-28] MEDS ORDERED: BACITRACIN INJ 50,000 UNIT VIAL ONE ×2 (11:18→13:24)
[2017-04-28] MEDS ORDERED: THROMBIN (BOVINE) 5000 UNIT EPITAXIS KIT ONE (11:18)
[2017-04-28] MEDS ORDERED: BUPIVACAINE INJ/PF LIPOSOME/PF 266 MG/20 ML SDV ONE (11:19)
--- NOTE | 2017-04-28 12:00 | Physician Advisory Note ---
Physician Advisor ProgressNote .: [facility] to the [facility], I have reviewed the medical record for this patient. Physician Advisor Statement: Nicely documented attending thought process. Status: 66yo Medicare pt w/HTN, HLD, BANDAR, obesity/BMI 50, asthma, on Xarelto, s /p TKR Lt on 04/13, came in 04/27 AM due to spontaneous drainage from wound. Reported she had been on abx, but may have been thinking she was taking it but actually not taking it , since she indicated it was "in the bag" & there was no abx in the bag in ED. She did take her Xarelto that AM. ED dr documented the area was erythematous and tender to palpation. T97.6, RR11, BP 118/59, 96/52. (+)WBC 25.7 w/bandemia prominent, CRP 68, wound cx & BCs done. Attending felt this was serosang drainage, requested no abx be given so he could better clarify the presence or absence of infxn, deep vs superficial. He was clearly concerned for possibility of infxn, and ordered repeat CBC & CRP for AM, wanting to better clarify what was & wasn't present after IVF & close monitoring before "muddying the najera" by starting abx that might or might not fully cover the possible organism. Overnight, pt spiked fever of 101.1, and although WBC is better 04/28, it remains quite elevated at 19.7, with much higher CRP. She remains persistently tachycardic, with HR into the 100s, and recurrently mildly hypotensive. Her Cr, which was 1.23 at baseline and up to 1.49 on arrival (not quite qualifying for dx of ARF), is likely better now after 1L IVF starting at 18:31 @ 150, and continuing at 150ml/hr on 04/28. Attending appropriately now plans I&D in OR with deep cultures, no pre-op Abx, to better clarify presence and type of infxn. It is expected that attending will order IV abx after surgical deep cultures are done, monitoring response closely & changing them PRN depending on culture results. Appropriate for Inpt status. CK
[2017-04-28] MEDS ORDERED: FENTANYL CITRATE INJ/PF 100 MCG/2 ML AMPUL ONE (13:47)
[2017-04-28] MEDS ORDERED: HYDROMORPHONE HCL INJ/PF 2 MG/ML AMPULE ONE (13:47)
[2017-04-28] MEDS ORDERED: MIDAZOLAM 2 MG/2 ML INJ ONE ×2 (13:47)
[2017-04-28] MEDS ORDERED: ONDANSETRON HCL INJ/PF 4 MG/2 ML SDV ONE (13:48)
[2017-04-28] MEDS ORDERED: PROPOFOL INJ 200 MG/20 ML VIAL IV ONE (13:48)
[2017-04-28] MEDS ORDERED: EPHEDRINE SULFATE INJ 50 MG/1 ML AMPULE ONE (13:48)
[2017-04-28] MEDS ORDERED: FENTANYL CITRATE INJ/PF 100 MCG/2 ML AMPUL IV PRN ×3 (14:36)
[2017-04-28] MEDS ORDERED: DIPHENHYDRAMINE HCL 50 MG/ML VIAL IV PRN (14:36)
[2017-04-28] MEDS ORDERED: VANCOMYCIN HCL INJ 1000 MG VIAL ONE ×2 (14:38→14:44)
--- NOTE | 2017-04-28 15:18 | Operative Report ---
Operative Report DATE OF SURGERY: 04/28/17 PREOPERATIVE DIAGNOSIS: Left periprosthetic knee infection OPERATION: Irrigation debridement, polyethylene exchange left knee arthroplasty SURGEON: NOHEMI CHEUNG ANESTHESIA: Spinal TISSUE REMOVED OR ALTERED: Cultures 2 to microbiology ESTIMATED BLOOD LOSS: 100 PROCEDURE: With the patient supine on the operating table left lower extremities prepped and draped in a sterile fashion. The limb was elevated for exsanguination tourniquet inflated 280 torr. A standard midline medial parapatellar approach knee is taken as in the previous surgical procedure. Upon entering the subcutaneous space purulent drainage is identified and cultured. Upon entering the knee capsule further cultures are obtained. The existing polyethylene spacer was easily removed. The wound was debrided meticulously including previous Vicryl sutures are used to close. It was then irrigated with 3 L normal strength and a bacitracin pulse lavage followed by 3 L of normal saline. The wound was again debrided meticulously. A new Maribeth size 6 triathlon CS spacer, 11 mm is impacted into the tibial tray. The tourniquet was deflated. Hemostasis obtained with electrocautery. Wound is then closed in layers with interrupted PDS suture. Sterile compressive dressing was applied and the patient's return to the PACU in satisfactory condition.
[2017-04-28] MEDS ORDERED: TRANEXAMIC ACID INJ/PF 1,000 MG/10 ML SDV IV ONE (17:00)
[2017-04-28] MEDS: MORPHINE SULFATE 10 MG/ML INJ IV PRN ×2 (17:33→20:07)
[2017-04-28] MEDS: RIFAMPIN 300 MG CAPSULE PO SCH (17:40)
[2017-04-28] MEDS ORDERED: NORMAL SALINE 1000 ML 2,000 ML IV ONE (18:30)
[2017-04-28] MEDS ORDERED: OXYBUTYNIN CHLORIDE 5 MG TABLET PO PRN (18:31)
[2017-04-28] MEDS ORDERED: ALBUTEROL SULFATE HFA (90 MCG/PUFF) 200 PUFF/8.5 GM MDI IH PRN (18:33)
[2017-04-28] MEDS: NORMAL SALINE 1000 ML 1,000 ML IV PRN (18:40)
[2017-04-28 18:49] LABS: ANION GAP 9 (5-19); BLOOD UREA NITROGEN 33 mg/dL (7-20); CALCIUM 8.6 mg/dL (8.4-10.2); CARBON DIOXIDE 28 mmol/L (22-30); CHLORIDE 99 mmol/L (98-107); CREATININE RESULT 1.15 mg/dL (0.52-1.25); GLUCOSE 89 mg/dL (75-110); POTASSIUM 4.3 mmol/L (3.6-5.0); SODIUM 136.1 mmol/L (137-145)
--- NOTE | 2017-04-28 18:51 | PDOC CONSULTATION ---
Consultation Consult Date: 04/28/17 Attending physician:: NOHEMI CHEUNG Consult reason:: Antibiotic selection for infected Left knee History of Present Illness Admission Date/PCP: 04/27/17 08:26 History of Present Illness: LILIA HERNANDEZ is a 66 year old female who is status post left knee arthroplasty on April 13, 2017. Patient reports on Thursday that she began developing drainage after berenice are removed. Patient reports she was having fevers and chills at home and also reports emesis 1. Patient currently reports ongoing left knee pain. Patient went to the OR today for replacement of prosthesis and cultures. We are consulted today for antibiotic selection. Past Medical History Cardiac Medical History: Reports: Hyperlipidema, Hypertension Denies: Atrial Fibrillation, Congestive Heart Failure, Coronary Artery Disease, Myocardial Infarction, Peripheral Vascular Disease, Pulmonary Embolism , Heart Murmur Pulmonary Medical History: Reports: Asthma, Bronchitis, Sleep Apnea Denies: Chronic Obstructive Pulmonary Disease (COPD), Pneumonia, Respiratory Failure, Tuberculosis Renal/ Medical History: Denies: End Stage Renal Disease Malignancy Medical History: Denies: Lung Cancer Musculoskeltal Medical History: Reports: Arthritis Denies: Fibromyalgia Past Surgical History Past Surgical History: Reports: Orthopedic Surgery - Nargis knee replacement, left knee replacement 04/13/17, Tonsillectomy Denies: Amputation, Appendectomy, Section, Cholecystectomy, Coronary Artery Bypass Graft, Gastric Bypass Surgery, Herniorrhaphy, Hysterectomy, Mastectomy, Pacemaker, Tubal Ligation Social History Smoking Status: Former Smoker Number of Years Smokin Last Time Smoked: 1981 Frequency of Alcohol Use: Rare Hx Recreational Drug Use: No Hx Prescription Drug Abuse: No - Advance Directive Resuscitation Status: Full Code Surrogate healthcare decision maker:: Nicolas, Family History Family History: Malignancy Parental Family History Reviewed: Yes Children Family History Reviewed: Yes Sibling(s) Family History Reviewed.: Yes Medication/Allergy Home Medications: Lisinopril 20 mg PO QAM 11/01/14 Lovastatin [Mevacor] 10 mg PO QPM 11/01/14 Oxybutynin Chloride 5 mg PO BIDP PRN 11/01/14 Budesonide/Formoterol Fumarate [Symbicort HFA 80-4.5 mcg Inhaler 6.9 gm] 2 puff IH BID 04/01/17 Montelukast Sodium [Singulair 10 mg Tablet] 10 mg PO QAM 04/01/17 Rivaroxaban [Xarelto 10 mg Tablet] 10 mg PO QHS #0 tablet 04/16/17 Hydrocodone Bit/Acetaminophen [Hydrocodon-Acetaminophen 5-325] 1 each PO Q6 PRN 04/27/17 Allergies/Adverse Reactions: aspirin [Aspirin] Allergy (Verified 04/01/17 11:41) Unsure Review of Systems Constitutional: PRESENT: chills, fatigue, fever(s), weakness. ABSENT: headache( s), weight gain, weight loss Eyes: ABSENT: visual disturbances Ears: ABSENT: hearing changes Cardiovascular: ABSENT: chest pain, dyspnea on exertion, edema, orthropnea, palpitations Respiratory: ABSENT: cough, hemoptysis Gastrointestinal: PRESENT: nausea, vomiting. ABSENT: abdominal pain, constipation, diarrhea, hematemesis, hematochezia, melena Genitourinary: ABSENT: dysuria, hematuria Musculoskeletal: PRESENT: joint swelling Integumentary: ABSENT: rash, wounds Neurological: ABSENT: abnormal gait, abnormal speech, confusion, dizziness, focal weakness, syncope Psychiatric: ABSENT: anxiety, depression, homidical ideation, suicidal ideation Endocrine: ABSENT: cold intolerance, heat intolerance, polydipsia, polyuria Hematologic/Lymphatic: ABSENT: easy bleeding, easy bruising Physical Exam Vital Signs: Temp Pulse Resp BP Pulse Ox 98.2 F 85 22 H 112/41 L 98 04/28/17 17:20 04/28/17 17:20 04/28/17 17:20 04/28/17 17:20 04/28/17 17:20 Intake & Output 04/27/17 04/28/17 04/29/17 06:59 06:59 06:59 Intake Total 1957 80294 Output Total 400 6650 Balance 1557 3750 Weight 145.1 kg General appearance: PRESENT: morbidly obese, well-developed, well-nourished, other - Chronically ill-appearing appearing Head exam: PRESENT: atraumatic, normocephalic, other - Right facial sebaceous cyst, above the zygomatic arch Eye exam: PRESENT: conjunctiva pale, EOMI, PERRLA. ABSENT: scleral icterus Ear exam: PRESENT: normal external ear exam Mouth exam: PRESENT: dry mucosa, tongue midline Neck exam: ABSENT: JVD, lymphadenopathy, thyromegaly, tracheal deviation Respiratory exam: PRESENT: clear to auscultation nargis, symmetrical, unlabored. ABSENT: accessory muscle use, rales, rhonchi, tachypnea, wheezes Cardiovascular exam: PRESENT: RRR, +S1, +S2. ABSENT: diastolic murmur, gallop, rubs, systolic murmur Pulses: PRESENT: normal radial pulses Vascular exam: PRESENT: normal capillary refill GI/Abdominal exam: PRESENT: hypoactive bowel sounds, soft. ABSENT: distended, firm, guarding, mass, Salazar's sign, organolmegaly, rebound, rigid, tenderness Rectal exam: PRESENT: deferred Extremities exam: PRESENT: joint swelling - Left knee, left leg wrapped in dressing, pedal edema. ABSENT: calf tenderness, clubbing Neurological exam: PRESENT: alert, awake, oriented to person, oriented to place , oriented to time, oriented to situation, CN II-XII grossly intact. ABSENT: motor sensory deficit Psychiatric exam: PRESENT: appropriate affect, normal mood. ABSENT: homicidal ideation, suicidal ideation Skin exam: PRESENT: dry, intact, warm. ABSENT: cyanosis, rash Results Laboratory Results: 04/28/17 05:07 04/28/17 04/28/17 05:07 05:07 WBC 19.7 H RBC 3.37 L Hgb 10.1 L Hct 30.4 L MCV 90 MCH 30.0 MCHC 33.2 RDW 13.4 Plt Count 235 Seg Neutrophils % 90.9 H Lymphocytes % 5.4 L Monocytes % 3.6 Eosinophils % 0.0 Basophils % 0.1 Absolute Neutrophils 18.0 H Absolute Lymphocytes 1.1 Absolute Monocytes 0.7 Absolute Eosinophils 0.0 Absolute Basophils 0.0 C-Reactive Protein 409.0 H Impressions: Knee X-Ray 04/27/17 07:59 IMPRESSION: Postoperative changes. Assessment & Plan - Diagnosis (1) Septic arthritis of knee, left Qualifiers: Septic arthritis organism: due to unspecified organism Qualified Code(s): M00.9 - Pyogenic arthritis, unspecified Is this a current diagnosis for this admission?: YesPlan: At this time, recommend initiation of zyvox pending patient's creatinine.also recommend at this time, Zosyn renally adjusted. Cultures have been sent and are currently pending. We will follow along with these cultures. (2) BANDAR (obstructive sleep apnea) Is this a current diagnosis for this admission?: YesPlan: Patient may use home CPAP (3) Asthma Qualifiers: Asthma severity: unspecified severity Asthma complication type: uncomplicated Qualified Code(s): J45.909 - Unspecified asthma, uncomplicated Is this a current diagnosis for this admission?: YesPlan: Resume patient's home medications. As needed albuterol (4) HTN (hypertension) Qualifiers: Hypertension type: essential hypertension Qualified Code(s): I10 - Essential (primary) hypertension Is this a current diagnosis for this admission?: Yes (5) ARF (acute renal failure) Qualifiers: Acute renal failure type: unspecified Qualified Code(s): N17.9 - Acute kidney failure, unspecified Is this a current diagnosis for this admission?: YesPlan: Patient with acute renal failure likely secondary to dehydration. She reports poor oral intake prior to admission and patient has just received spinal anesthetic and is mildly hypotensive. Patient's mucosa is dry. Will stop LR and start patient on normal saline after 2 L bolus. Concern for worsening renal failure due to ATN from sepsis. (6) Dehydration Is this a current diagnosis for this admission?: YesPlan: Give 2 L normal saline bolus and place patient on normal saline on 175 mL/h (7) Morbid obesity with BMI of 50.0-59.9, adult Is this a current diagnosis for this admission?: YesPlan: We will consult dietary (8) DVT prophylaxis Is this a current diagnosis for this admission?: YesPlan: Defer DVT prophylaxis to the primary surgical team. (9) Anemia Qualifiers: Anemia type: unspecified type Qualified Code(s): D64.9 - Anemia, unspecified Is this a current diagnosis for this admission?: YesPlan: We will send iron studies and type and screen patient (10) Impaired fasting glucose Is this a current diagnosis for this admission?: YesPlan: check hemoglobin A1c.Suspect may patient may be prediabetic. Or diabetic. 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
[2017-04-28] MEDS: RIVAROXABAN 10 MG TABLET PO SCH (21:06)
[2017-04-28] MEDS: PIPERACILLIN SODIUM/TAZOBACTAM 4.5 GM in NORMAL SALINE 100 ML IV SCH (21:17)
[2017-04-28] MEDS: BUDESONIDE/FORMOTEROL 80-4.5 MCG 60 PUFF/6.9 GM MDI IH SCH (21:55)
[2017-04-28] MEDS: LINEZOLID 300 ML IV SCH (21:55)
[2017-04-29] MEDS: MORPHINE SULFATE 10 MG/ML INJ IV PRN ×2 (02:24→07:28)
[2017-04-29] MEDS: PIPERACILLIN SODIUM/TAZOBACTAM 4.5 GM in NORMAL SALINE 100 ML IV SCH ×4 (02:24→20:47)
[2017-04-29] MEDS ORDERED: VANCOMYCIN HCL 1,000 MG in DEXTROSE 5%-WATER 250 ML IV SCH (03:00)
[2017-04-29 04:50] LABS: HEMATOCRIT 27.3 % (36.0-47.0); HEMOGLOBIN 9.2 g/dL (12.0-15.5); HGB HCT DIFFERENCE 0.3; MEAN CORPUSCULAR HEMOGLOBIN 30.3 pg (27.0-33.4); MEAN CORPUSCULAR HGB CONC 33.6 g/dL (32.0-36.0); MEAN CORPUSCULAR VOLUME 90 fl (80-97); RED BLOOD COUNT 3.03 10^6/uL (3.72-5.28); RED CELL DISTRIBUTION WIDTH 13.1 % (11.5-14.0); WHITE BLOOD COUNT 14.3 10^3/uL (4.0-10.5)
[2017-04-29 05:09] LABS: ANION GAP 7 (5-19); BLOOD UREA NITROGEN 29 mg/dL (7-20); CALCIUM 7.9 mg/dL (8.4-10.2); CARBON DIOXIDE 28 mmol/L (22-30); CHLORIDE 101 mmol/L (98-107); CREATININE RESULT 1.14 mg/dL (0.52-1.25); GLUCOSE 106 mg/dL (75-110); POTASSIUM 4.3 mmol/L (3.6-5.0); SODIUM 135.8 mmol/L (137-145)
[2017-04-29] MEDS: MONTELUKAST SODIUM 10 MG TABLET PO SCH (07:28)
--- NOTE | 2017-04-29 07:41 | PDOC TRANSFER SUMMARY ---
General - Admit/Disc Date/PCP Admission Date/Primary Care Provider: 04/27/17 08:26 Discharge Date: 04/30/17 - Discharge Diagnosis (1) Bandemia Is this a current diagnosis for this admission?: Yes (2) Cellulitis Is this a current diagnosis for this admission?: Yes (3) Arthritis of knee, left Is this a current diagnosis for this admission?: No - Additional Information Resuscitation Status: Full Code Discharge Diet: As Tolerated, Regular Discharge Activity: Balance Activity w/Rest, No Driving Home Medications: Lisinopril 20 mg PO QAM 11/01/14 Lovastatin [Mevacor] 10 mg PO QPM 11/01/14 Oxybutynin Chloride 5 mg PO BIDP PRN 11/01/14 Montelukast Sodium [Singulair 10 mg Tablet] 10 mg PO QAM 04/01/17 Rivaroxaban [Xarelto 10 mg Tablet] 10 mg PO QHS #0 tablet 04/16/17 Hydrocodone Bit/Acetaminophen [Hydrocodon-Acetaminophen 5-325] 1 each PO Q6 PRN 04/27/17 Linezolid [Zyvox RTU 600 mg/300 ml Premixed] 600 mg IV Q12 #0 rtupb 04/29/17 Oxycodone HCl [Oxy-Ir 5 mg Tablet] 5 mg PO Q6HP PRN #0 tablet 04/29/17 Piperacillin Sodium/Tazobactam [Zosyn Inj 4.5 gm Vial] 4.5 gm IV Q6A #0 vial 11/14 Rivaroxaban [Xarelto 10 mg Tablet] 10 mg PO QHS #0 tablet 04/29/17 History of Present Illness Admission Date/PCP: 04/27/17 08:26 History of Present Illness: Is a 66-year-old white female who presents approximately 2 weeks status post left knee arthroplasty with pain swelling and drainage from her left knee incision. Hospital Course Hospital Course: Because an operative irrigation debridement polyethylene exchange. Cultures grow gram-positive rods. Specifics and sensitivities are pending. Physical Exam Vital Signs: Temp Pulse Resp BP Pulse Ox 37.3 C 99 17 115/60 94 04/29/17 00:00 04/29/17 00:00 04/29/17 00:00 04/29/17 00:00 04/29/17 00:00 Intake & Output 04/28/17 04/29/17 04/30/17 06:59 06:59 06:59 Intake Total 0413 96179 Output Total 400 8050 Balance 1557 3122 Weight 145.1 kg 153.7 kg General appearance: PRESENT: mild distress, obese Head exam: PRESENT: normocephalic Eye exam: PRESENT: EOMI Respiratory exam: PRESENT: unlabored Cardiovascular exam: PRESENT: RRR Pulses: PRESENT: +1 pedal pulses bilateral Vascular exam: PRESENT: normal capillary refill GI/Abdominal exam: PRESENT: soft Rectal exam: PRESENT: deferred Musculoskeletal exam: PRESENT: other - Left lower extremity compressive dressing is clean dry and intact. There is a considerable amount of tenderness to palpation. Distal neurovascular examination is intact. Neurological exam: PRESENT: alert, awake, oriented to person, oriented to place , oriented to time, oriented to situation. ABSENT: motor sensory deficit Psychiatric exam: PRESENT: appropriate affect, normal mood. ABSENT: homicidal ideation, suicidal ideation Skin exam: PRESENT: dry, intact, warm. ABSENT: cyanosis, rash Results Laboratory Results: 04/29/17 04:21 04/29/17 04:21 04/28/17 04/29/17 04/29/17 18:17 04:21 04:21 WBC 14.3 H RBC 3.03 L Hgb 9.2 L Hct 27.3 L MCV 90 MCH 30.3 MCHC 33.6 RDW 13.1 Plt Count 226 Sodium 136.1 L 135.8 L Potassium 4.3 4.3 Chloride 99 101 Carbon Dioxide 28 28 Anion Gap 9 7 BUN 33 H 29 H Creatinine 1.15 1.14 Est GFR ( Amer) 57 L 57 L Est GFR (Non-Af Amer) 47 L 47 L Glucose 89 106 Calcium 8.6 7.9 L Impressions: Knee X-Ray 04/27/17 07:59 IMPRESSION: Postoperative changes. Status: Imported from PACS Transfer Plan - Disposition Transfer Plan: Transferred to a senior living facility, [facility], for ongoing senior living and physical therapy. Anticipate 6 weeks of IV antibiotic therapy including Zosyn and Zyvox. Underlying picot dressing can be changed on postop day 7. Follow-up will be with Dr. Aguilar in the [facility] for surgery in 2 weeks for suture removal
[2017-04-29] MEDS: NORMAL SALINE 1000 ML 1,000 ML IV PRN (08:53)
[2017-04-29] MEDS: LINEZOLID 300 ML IV SCH ×2 (10:47→21:41)
[2017-04-29] MEDS: RIFAMPIN 300 MG CAPSULE PO SCH (10:47)
[2017-04-29] MEDS: BUDESONIDE/FORMOTEROL 80-4.5 MCG 60 PUFF/6.9 GM MDI IH SCH ×2 (10:48→21:41)
--- NOTE | 2017-04-29 10:58 | RADIOLOGY REPORT (SQ) ---
EXAM DESCRIPTION: PICC INSERTION; U/S GUIDE FOR VASCULAR ACCESS; FLUORO/CV PLACEMENT COMPLETED DATE/TIME: 04/29/2017 10:29 am REASON FOR STUDY: Home IV antibiotics; IV ABX; HOME IV ABX COMPARISON: None. FLUOROSCOPY TIME: 1 minutes 58 seconds 3 images saved to PACS. TECHNIQUE: Fluoroscopic and ultrasound guided PICC placement. LIMITATIONS: None. PROCEDURE: After written consent and assessment were obtained, the patient was brought into the fluo roscopy room and place supine on the table. Ultrasound was used on the patient's left arm for PICC a ccess. The left arm was prepped and draped in a sterile fashion along with the ultrasound probe. The entry site was anesthetized with 1% lidocaine. A 21 gauge 7 cm needle was advanced through the skin a nd into the basilic vein under live ultrasound guidance. An ultrasound image was saved to PACS confi rming access site. A .018 guide wire was then inserted through the needle and into the venous system . The needle was the removed and an 11 blade scalpel was used to make a 1cm skin incision. A 5 fr pe el-away sheath was advanced over the wire and into the venous system. A measurement was then made usi ng the existing wire and live fluoroscopic guidance. The wire was then removed and the trimmed. The P ICC was advanced through the peel-away sheath and into the venous system. The peel-away sheath was re moved and the catheter was adhered to the patients arm with a stat lock. The catheter was then aspira tommie and flushed and a sterile bandage was placed over the access site. A fluoroscopic spot image was saved to PACS confirming the catheter tip within the distal SVC. IMPRESSION: SUCCESSFUL PLACEMENT OF A 5 FR DUAL LUMEN 39 CM PICC IN THE LEFT BASILIC VEIN. COMMENT: Patient medication list reviewed: Yes- Quality ID# [id number]:Eligible professional attests to doc umenting in the medical record they obtained, updated, or reviewed the patient's current medications. . Quality ID 145: Final reports for procedures using fluoroscopy that document radiation exposure gayathri estevan, or exposure time and number of fluorographic images (if radiation exposure indices are not avail able) Quality ID #76: The patient was prepped and draped using maximum sterile barrier technique including cap, mask, sterile gown, sterile gloves, a large sterile sheet, hand hygiene, and 2% Chlorhexidine fo r cutaneous antisepsis. When ultrasound is used, sterile ultrasound techniques are followed requiring sterile gel and sterile probes. TECHNICAL DOCUMENTATION: JOB ID: [id number] [employer]- All Rights Reserved
[2017-04-29] MEDS: ASPIRIN 325 MG TABLET, ENT COATED PO SCH (11:04)
[2017-04-29] MEDS: OXYCODONE HCL IR 5 MG TABLET PO PRN ×2 (13:19→19:03)
[2017-04-29] MEDS: CLINDAMYCIN 900 MG/D5W RTU 50 ML IV SCH (17:49)
[2017-04-29] MEDS ORDERED: (PENDING PHARMACY ID) (Lovastatin [Mevacor] 10 MG) PO SCH (18:00)
[2017-04-29] MEDS ORDERED: NORMAL SALINE 10 ML SDV (AFTER EACH USE) IV PRN (19:15)
--- NOTE | 2017-04-29 20:09 | PDOC PROGRESS REPORT ---
Subjective Progress Note for:: 04/29/17 Subjective:: Patient reports she is feeling somewhat better. Patient reports that she has not yet had a bowel movement, but is passing flatus. Patient denies chest pain, shortness of breath, abdominal pain, nausea, vomiting , fevers, chills, diarrhea, constipation, headache, new onset weakness. Physical Exam Vital Signs: Temp Pulse Resp BP Pulse Ox 98.7 F 94 18 101/46 L 97 04/29/17 15:43 04/29/17 15:43 04/29/17 15:43 04/29/17 15:43 04/29/17 15:43 Intake & Output 04/28/17 04/29/17 04/30/17 06:59 06:59 06:59 Intake Total 1957 75443 2425 Output Total 400 8050 1500 Balance 1557 3122 925 Weight 145.1 kg 153.7 kg Exam: General: Morbidly obese, awake alert and oriented x3, no acute respiratory distress HEENT: AT/NC, PERRL, EOMI, oropharynx is moist, pink, no scleral icterus, no conjunctival injection Neck: No JVD, trachea midline Chest: Clear to auscultation bilaterally, no wheezes rhonchi or rales CV: Regular rate and rhythm, normal S1 and S2, no murmur, rub, or gallop Abdomen: Soft, nontender to palpation, nondistended, active bowel sounds; no rebound, rigidity, or guarding Extremities: No cyanosis, clubbing or edema; left lower extremity is in bandage with nerve block catheter protruding Neuro: Cranial nerves II through XII are grossly intact without focal deficits; awake alert and orientedx3 Psych: Normal mood and affect Results Laboratory Results: 04/29/17 04:21 04/29/17 04:21 04/29/17 04/29/17 04:21 04:21 WBC 14.3 H RBC 3.03 L Hgb 9.2 L Hct 27.3 L MCV 90 MCH 30.3 MCHC 33.6 RDW 13.1 Plt Count 226 Sodium 135.8 L Potassium 4.3 Chloride 101 Carbon Dioxide 28 Anion Gap 7 BUN 29 H Creatinine 1.14 Est GFR ( Amer) 57 L Est GFR (Non-Af Amer) 47 L Glucose 106 Calcium 7.9 L 04/29/17 15:43 Creatine Kinase 42 Impressions: Knee X-Ray 04/27/17 07:59 IMPRESSION: Postoperative changes. Guidance Fluoroscopy 04/29/17 00:00 IMPRESSION: SUCCESSFUL PLACEMENT OF A 5 FR DUAL LUMEN 39 CM PICC IN THE LEFT BASILIC VEIN. Interventional Vascular Procedure 04/29/17 00:00 IMPRESSION: SUCCESSFUL PLACEMENT OF A 5 FR DUAL LUMEN 39 CM PICC IN THE LEFT BASILIC VEIN. PICC Line Insertion 04/29/17 00:00 IMPRESSION: SUCCESSFUL PLACEMENT OF A 5 FR DUAL LUMEN 39 CM PICC IN THE LEFT BASILIC VEIN. Assessment & Plan - Diagnosis (1) Septic arthritis of knee, left Qualifiers: Septic arthritis organism: due to other bacteria Qualified Code(s): M00.862 - Arthritis due to other bacteria, left knee Is this a current diagnosis for this admission?: YesPlan: Patient with Clostridium perfringens in her joint fluid. Continue patient on Zosyn and have added clindamycin 900 mg IV q. 8. Until patient's cultures are final would recommend continuing Zyvox (2) BANDAR (obstructive sleep apnea) Is this a current diagnosis for this admission?: YesPlan: Patient may use home CPAP (3) Asthma Qualifiers: Asthma severity: unspecified severity Asthma complication type: uncomplicated Qualified Code(s): J45.909 - Unspecified asthma, uncomplicated Is this a current diagnosis for this admission?: YesPlan: Resume patient's home medications. As needed albuterol (4) HTN (hypertension) Qualifiers: Hypertension type: essential hypertension Qualified Code(s): I10 - Essential (primary) hypertension Is this a current diagnosis for this admission?: YesPlan: Currently normotensive to mildly hypotensive. Continue IV fluids and hold medications. (5) ARF (acute renal failure) Qualifiers: Acute renal failure type: unspecified Qualified Code(s): N17.9 - Acute kidney failure, unspecified Is this a current diagnosis for this admission?: YesPlan: Patient with acute renal failure likely secondary to dehydration. S Improved. Continue IV fluids (6) Dehydration Is this a current diagnosis for this admission?: Yes (7) Morbid obesity with BMI of 50.0-59.9, adult Is this a current diagnosis for this admission?: Yes (8) DVT prophylaxis Is this a current diagnosis for this admission?: Yes (9) Anemia Qualifiers: Anemia type: unspecified type Qualified Code(s): D64.9 - Anemia, unspecified Is this a current diagnosis for this admission?: YesPlan: We will send iron studies and type and screen patient (10) Impaired fasting glucose Is this a current diagnosis for this admission?: YesPlan: check hemoglobin A1c.Suspect may patient may be prediabetic. Or diabetic. - Time Time Spent with patient: 25-34 minutes Medications reviewed and adjusted accordingly: Yes Anticipated discharge: Acute Rehab
[2017-04-29] MEDS: RIVAROXABAN 10 MG TABLET PO SCH (21:40)
[2017-04-29] MEDS: NORMAL SALINE 10 ML SDV (SCHEDULED) IV SCH (21:42)
[2017-04-30] MEDS: CLINDAMYCIN 900 MG/D5W RTU 50 ML IV SCH ×2 (01:05→09:22)
[2017-04-30] MEDS: PIPERACILLIN SODIUM/TAZOBACTAM 4.5 GM in NORMAL SALINE 100 ML IV SCH ×3 (02:18→15:30)
[2017-04-30 06:22] LABS: CREATINE KINASE 28 U/L (30-135)
[2017-04-30 07:30] LABS: FOLATE > 20.00 ng/mL (>2.76)
[2017-04-30] MEDS ORDERED: OXYBUTYNIN CHLORIDE 5 MG TABLET PO PRN (07:36)
[2017-04-30] MEDS: MONTELUKAST SODIUM 10 MG TABLET PO SCH (09:20)
[2017-04-30] MEDS: OXYCODONE HCL IR 5 MG TABLET PO PRN ×2 (09:20→23:43)
[2017-04-30] MEDS: LINEZOLID 300 ML IV SCH (11:18)
[2017-04-30] MEDS: BUDESONIDE/FORMOTEROL 80-4.5 MCG 60 PUFF/6.9 GM MDI IH SCH ×2 (11:19→21:13)
[2017-04-30] MEDS: NORMAL SALINE 10 ML SDV (SCHEDULED) IV SCH ×3 (11:21→21:17)
[2017-04-30] MEDS: ASPIRIN 325 MG TABLET, ENT COATED PO SCH (11:21)
[2017-04-30] MEDS ORDERED: NORMAL SALINE 10 ML SDV (AFTER EACH USE) IV PRN (11:38)
--- NOTE | 2017-04-30 13:47 | PDOC PROGRESS REPORT ---
Subjective Progress Note for:: 04/30/17 Subjective:: Patient's pain is well controlled. No issues overnight Physical Exam Vital Signs: Temp Pulse Resp BP Pulse Ox 36.9 C 81 15 119/67 97 04/30/17 11:33 04/30/17 11:33 04/30/17 11:33 04/30/17 11:33 04/30/17 11:33 Intake & Output 04/29/17 04/30/17 05/01/17 06:59 06:59 06:59 Intake Total 32556 5100 Output Total 8050 2900 Balance 3122 2200 Weight 153.7 kg Head exam: PRESENT: atraumatic Adult Front & Back Image: 1 - Shin dressing with mild bloody drainage but not saturated at this moment. Neurovascular intact distally. Soft calf with no tenderness or redness. Results Laboratory Results: 04/29/17 04:21 04/29/17 04:21 04/30/17 04/30/17 05:30 05:30 Retic Count (auto) 1.71 Absolute Retic 0.044 Iron 27.5 L TIBC 181 L % Saturation 15 Ferritin 954.00 H Vitamin B12 795.0 Folate > 20.00 04/28/17 14:30 Knee - Left Gram Stain - Final 04/28/17 14:30 Knee - Left Wound Culture - Final Clostridium Perfringens Corynebacterium Species Propionibacterium Species 04/29/17 04/30/17 15:43 05:30 Creatine Kinase 42 28 L Impressions: Knee X-Ray 04/27/17 07:59 IMPRESSION: Postoperative changes. Guidance Fluoroscopy 04/29/17 00:00 IMPRESSION: SUCCESSFUL PLACEMENT OF A 5 FR DUAL LUMEN 39 CM PICC IN THE LEFT BASILIC VEIN. Interventional Vascular Procedure 04/29/17 00:00 IMPRESSION: SUCCESSFUL PLACEMENT OF A 5 FR DUAL LUMEN 39 CM PICC IN THE LEFT BASILIC VEIN. PICC Line Insertion 04/29/17 00:00 IMPRESSION: SUCCESSFUL PLACEMENT OF A 5 FR DUAL LUMEN 39 CM PICC IN THE LEFT BASILIC VEIN. Status: Image reviewed by me Assessment & Plan - Plan Summary Plan Summary: Patient is status post I&D with polyp exchange of her left total knee arthroplasty. Cultures coming back with Clostridium perfringens. Patient currently receiving IV Zyvox and clindamycin. Continue physical therapy. Continue shin dressing. Continue pain control. Appreciate hospitalist service input and antibiotic treatment
--- NOTE | 2017-04-30 19:51 | PDOC PROGRESS REPORT ---
Subjective Progress Note for:: 04/30/17 Subjective:: Patient reports her knee is still quite tender especially on palpation. Patient reports having a bowel movement today. Patient denies chest pain, shortness of breath, abdominal pain, nausea, vomiting , fevers, chills, diarrhea, constipation, headache, new onset weakness. Physical Exam Vital Signs: Temp Pulse Resp BP Pulse Ox 98.9 F 85 17 117/56 L 95 04/30/17 00:00 04/30/17 00:00 04/30/17 00:00 04/30/17 00:00 04/30/17 00:00 Intake & Output 04/29/17 04/30/17 05/01/17 06:59 06:59 06:59 Intake Total 16004 5100 Output Total 8050 2900 Balance 3122 2200 Weight 153.7 kg Exam: General: Morbidly obese, awake alert and oriented x3, no acute respiratory distress HEENT: AT/NC, PERRL, EOMI, oropharynx is moist, pink, no scleral icterus, no conjunctival injection Neck: No JVD, trachea midline Chest: Clear to auscultation bilaterally, no wheezes rhonchi or rales CV: Regular rate and rhythm, normal S1 and S2, no murmur, rub, or gallop Abdomen: Soft, nontender to palpation, nondistended, active bowel sounds; no rebound, rigidity, or guarding Extremities: No cyanosis, clubbing or edema; left lower extremity 2+ edema with nerve block catheter protruding, Neuro: Cranial nerves II through XII are grossly intact without focal deficits; awake alert and orientedx3 Psych: Normal mood and affect Results Laboratory Results: 04/29/17 04:21 04/29/17 04:21 04/30/17 04/30/17 05:30 05:30 Retic Count (auto) 1.71 Absolute Retic 0.044 Iron 27.5 L TIBC 181 L % Saturation 15 Ferritin 954.00 H Vitamin B12 795.0 Folate > 20.00 04/29/17 04/30/17 15:43 05:30 Creatine Kinase 42 28 L Impressions: Knee X-Ray 04/27/17 07:59 IMPRESSION: Postoperative changes. Guidance Fluoroscopy 04/29/17 00:00 IMPRESSION: SUCCESSFUL PLACEMENT OF A 5 FR DUAL LUMEN 39 CM PICC IN THE LEFT BASILIC VEIN. Interventional Vascular Procedure 04/29/17 00:00 IMPRESSION: SUCCESSFUL PLACEMENT OF A 5 FR DUAL LUMEN 39 CM PICC IN THE LEFT BASILIC VEIN. PICC Line Insertion 04/29/17 00:00 IMPRESSION: SUCCESSFUL PLACEMENT OF A 5 FR DUAL LUMEN 39 CM PICC IN THE LEFT BASILIC VEIN. Assessment & Plan - Diagnosis (1) Septic arthritis of knee, left Qualifiers: Septic arthritis organism: due to other bacteria Qualified Code(s): M00.862 - Arthritis due to other bacteria, left knee Is this a current diagnosis for this admission?: YesPlan: Discussed with ID at night and and they recommend transition to clindamycin 600 IV q. 8 for 3 weeks and then orally for 3 weeks if patient is improved. If not she will require an additional 3 weeks of IV clindamycin. Patient has Clostridium perfringens (2) BANDAR (obstructive sleep apnea) Is this a current diagnosis for this admission?: Yes (3) Asthma Qualifiers: Asthma severity: unspecified severity Asthma complication type: uncomplicated Qualified Code(s): J45.909 - Unspecified asthma, uncomplicated Is this a current diagnosis for this admission?: Yes (4) HTN (hypertension) Qualifiers: Hypertension type: essential hypertension Qualified Code(s): I10 - Essential (primary) hypertension Is this a current diagnosis for this admission?: Yes (5) ARF (acute renal failure) Qualifiers: Acute renal failure type: unspecified Qualified Code(s): N17.9 - Acute kidney failure, unspecified Is this a current diagnosis for this admission?: Yes (6) Dehydration Is this a current diagnosis for this admission?: Yes (7) Morbid obesity with BMI of 50.0-59.9, adult Is this a current diagnosis for this admission?: Yes (8) DVT prophylaxis Is this a current diagnosis for this admission?: Yes (9) Anemia Qualifiers: Anemia type: unspecified type Qualified Code(s): D64.9 - Anemia, unspecified Is this a current diagnosis for this admission?: Yes (10) Impaired fasting glucose Is this a current diagnosis for this admission?: Yes - Time Time Spent with patient: 25-34 minutes Medications reviewed and adjusted accordingly: Yes Anticipated discharge: Acute Rehab Within: when bed available
[2017-04-30] MEDS: CLINDAMYCIN 600 MG/D5W RTU 50 ML IV SCH (21:14)
[2017-04-30] MEDS: RIVAROXABAN 10 MG TABLET PO SCH (21:15)
[2017-05-01 04:41] LABS: ABSOLUTE BASOPHILS # (AUTO) 0.1 10^3/uL (0.0-0.2); ABSOLUTE EOSINOPHILS # (AUTO) 0.3 10^3/uL (0.0-0.6); ABSOLUTE LYMPHOCYTES (AUTO) 1.1 10^3/uL (0.5-4.7); ABSOLUTE MONOCYTES (AUTO) 0.6 10^3/uL (0.1-1.4); ABSOLUTE NEUT (AUTO) 4.8 10^3/uL (1.7-8.2); BASOPHILS % (AUTO) 0.8 % (0-2); EOSINOPHILS % (AUTO) 3.7 % (0-6); HEMATOCRIT 25.6 % (36.0-47.0); HEMOGLOBIN 8.6 g/dL (12.0-15.5); HGB HCT DIFFERENCE 0.2; LYMPHOCYTES % (AUTO) 15.5 % (13-45); MEAN CORPUSCULAR HGB CONC 33.5 g/dL (32.0-36.0); MEAN CORPUSCULAR VOLUME 90 fl (80-97); MONOCYTES % (AUTO) 9.5 % (3-13); RED BLOOD COUNT 2.86 10^6/uL (3.72-5.28); RED CELL DISTRIBUTION WIDTH 13.4 % (11.5-14.0); SEGMENTED NEUTROPHILS % (AUTO) 70.5 % (42-78); WHITE BLOOD COUNT 6.8 10^3/uL (4.0-10.5)
[2017-05-01 04:51] LABS: PROTHROMBIN TIME 15.2 SEC (11.4-15.4)
[2017-05-01 04:52] LABS: PARTIAL THROMBOPLASTIN TIME 38.1 SEC (23.5-35.8)
[2017-05-01 04:59] LABS: ANION GAP 7 (5-19); BLOOD UREA NITROGEN 16 mg/dL (7-20); CALCIUM 7.8 mg/dL (8.4-10.2); CARBON DIOXIDE 27 mmol/L (22-30); CHLORIDE 105 mmol/L (98-107); CREATININE RESULT 1.02 mg/dL (0.52-1.25); GLUCOSE 83 mg/dL (75-110); POTASSIUM 3.7 mmol/L (3.6-5.0); SODIUM 138.7 mmol/L (137-145)
[2017-05-01] MEDS: CLINDAMYCIN 600 MG/D5W RTU 50 ML IV SCH ×2 (05:18→13:54)
[2017-05-01] MEDS: MONTELUKAST SODIUM 10 MG TABLET PO SCH (08:30)
[2017-05-01] MEDS: OXYCODONE HCL IR 5 MG TABLET PO PRN (08:32)
[2017-05-01] MEDS ORDERED: FERROUS SULFATE 325 MG TABLET PO SCH (09:00)
[2017-05-01] MEDS: BUDESONIDE/FORMOTEROL 80-4.5 MCG 60 PUFF/6.9 GM MDI IH SCH (09:46)
[2017-05-01] MEDS: NORMAL SALINE 10 ML SDV (SCHEDULED) IV SCH ×2 (09:47→09:48)
[2017-05-01] MEDS: ASPIRIN 325 MG TABLET, ENT COATED PO SCH (09:49)
[2017-05-01] MEDS ORDERED: MULTIVITAMINS W-IRON TABLET, CHEWABLE PO SCH (10:00)
[2017-05-01] MEDS ORDERED: DOCUSATE SODIUM 100 MG CAPSULE PO SCH (10:00)
--- NOTE | 2017-05-01 14:02 | PDOC PROGRESS REPORT ---
Subjective Progress Note for:: 05/01/17 Subjective:: No issues overnight Physical Exam Vital Signs: Temp Pulse Resp BP Pulse Ox 36.9 C 75 16 144/63 H 97 05/01/17 11:48 05/01/17 11:48 05/01/17 11:48 05/01/17 11:48 05/01/17 11:48 Intake & Output 04/30/17 05/01/17 05/02/17 06:59 06:59 06:59 Intake Total 5100 2760 Output Total 2900 600 Balance 2200 2160 Weight 153.6 kg Adult Front & Back Image: 1 - VIDHYA dressing with mild bloody drainage, NVI distally, no calf redness or tenderness. Results Laboratory Results: 05/01/17 04:15 05/01/17 04:15 04/30/17 05/01/17 05/01/17 05:30 04:15 04:15 WBC 6.8 RBC 2.86 L Hgb 8.6 L Hct 25.6 L MCV 90 MCH 30.0 MCHC 33.5 RDW 13.4 Plt Count 224 Seg Neutrophils % 70.5 Lymphocytes % 15.5 Monocytes % 9.5 Eosinophils % 3.7 Basophils % 0.8 Absolute Neutrophils 4.8 Absolute Lymphocytes 1.1 Absolute Monocytes 0.6 Absolute Eosinophils 0.3 Absolute Basophils 0.1 Sodium 138.7 Potassium 3.7 Chloride 105 Carbon Dioxide 27 Anion Gap 7 BUN 16 Creatinine 1.02 Est GFR ( Amer) > 60 Est GFR (Non-Af Amer) 54 L Glucose 83 Calcium 7.8 L Transferrin 104 L 04/28/17 01:43 Knee - Left Gram Stain - Final 04/28/17 01:43 Knee - Left Wound Culture - Final Skin Cate Clostridium Perfringens 04/28/17 14:30 Knee - Left Gram Stain - Final 04/28/17 14:30 Knee - Left Wound Culture - Final Clostridium Perfringens Propionibacterium Species 04/28/17 14:30 Knee - Left Gram Stain - Final 04/28/17 14:30 Knee - Left Wound Culture - Final Clostridium Perfringens Corynebacterium Species Propionibacterium Species 04/29/17 04/30/17 15:43 05:30 Creatine Kinase 42 28 L Impressions: Knee X-Ray 04/27/17 07:59 IMPRESSION: Postoperative changes. Guidance Fluoroscopy 04/29/17 00:00 IMPRESSION: SUCCESSFUL PLACEMENT OF A 5 FR DUAL LUMEN 39 CM PICC IN THE LEFT BASILIC VEIN. Interventional Vascular Procedure 04/29/17 00:00 IMPRESSION: SUCCESSFUL PLACEMENT OF A 5 FR DUAL LUMEN 39 CM PICC IN THE LEFT BASILIC VEIN. PICC Line Insertion 04/29/17 00:00 IMPRESSION: SUCCESSFUL PLACEMENT OF A 5 FR DUAL LUMEN 39 CM PICC IN THE LEFT BASILIC VEIN. Assessment & Plan - Plan Summary Plan Summary: S/P I&D and poly exchange left TKA due to C. per. COnt IV ABX Continue current care
--- NOTE | 2017-05-01 15:25 | PDOC PROGRESS REPORT ---
Subjective Progress Note for:: 05/01/17 Subjective:: Patient reports she is feeling improved. Patient reports having diarrhea. Patient denies chest pain, shortness of breath, abdominal pain, nausea, vomiting , fevers, chills, constipation, headache, new onset weakness. Physical Exam Vital Signs: Temp Pulse Resp BP Pulse Ox 98.4 F 75 16 144/63 H 97 05/01/17 11:48 05/01/17 11:48 05/01/17 11:48 05/01/17 11:48 05/01/17 11:48 Intake & Output 04/30/17 05/01/17 05/02/17 06:59 06:59 06:59 Intake Total 5100 2760 Output Total 2900 600 Balance 2200 2160 Weight 153.6 kg Exam: General: Morbidly obese, awake alert and oriented x3, no acute respiratory distress HEENT: AT/NC, PERRL, EOMI, oropharynx is moist, pink, no scleral icterus, no conjunctival injection Neck: No JVD, trachea midline Chest: Clear to auscultation bilaterally, no wheezes rhonchi or rales CV: Regular rate and rhythm, normal S1 and S2, no murmur, rub, or gallop Abdomen: Soft, nontender to palpation, nondistended, active bowel sounds; no rebound, rigidity, or guarding Extremities: No cyanosis, clubbing or edema; left lower extremity 2+ edema with nerve block catheter protruding, Neuro: Cranial nerves II through XII are grossly intact without focal deficits; awake alert and orientedx3 Psych: Normal mood and affect Results Laboratory Results: 05/01/17 04:15 05/01/17 04:15 04/30/17 05/01/17 05/01/17 05:30 04:15 04:15 WBC 6.8 RBC 2.86 L Hgb 8.6 L Hct 25.6 L MCV 90 MCH 30.0 MCHC 33.5 RDW 13.4 Plt Count 224 Seg Neutrophils % 70.5 Lymphocytes % 15.5 Monocytes % 9.5 Eosinophils % 3.7 Basophils % 0.8 Absolute Neutrophils 4.8 Absolute Lymphocytes 1.1 Absolute Monocytes 0.6 Absolute Eosinophils 0.3 Absolute Basophils 0.1 Sodium 138.7 Potassium 3.7 Chloride 105 Carbon Dioxide 27 Anion Gap 7 BUN 16 Creatinine 1.02 Est GFR ( Amer) > 60 Est GFR (Non-Af Amer) 54 L Glucose 83 Calcium 7.8 L Transferrin 104 L 04/28/17 01:43 Knee - Left Gram Stain - Final 04/28/17 01:43 Knee - Left Wound Culture - Final Skin Cate Clostridium Perfringens 04/28/17 14:30 Knee - Left Gram Stain - Final 04/28/17 14:30 Knee - Left Wound Culture - Final Clostridium Perfringens Propionibacterium Species 04/29/17 04/30/17 15:43 05:30 Creatine Kinase 42 28 L Impressions: Knee X-Ray 04/27/17 07:59 IMPRESSION: Postoperative changes. Guidance Fluoroscopy 04/29/17 00:00 IMPRESSION: SUCCESSFUL PLACEMENT OF A 5 FR DUAL LUMEN 39 CM PICC IN THE LEFT BASILIC VEIN. Interventional Vascular Procedure 04/29/17 00:00 IMPRESSION: SUCCESSFUL PLACEMENT OF A 5 FR DUAL LUMEN 39 CM PICC IN THE LEFT BASILIC VEIN. PICC Line Insertion 04/29/17 00:00 IMPRESSION: SUCCESSFUL PLACEMENT OF A 5 FR DUAL LUMEN 39 CM PICC IN THE LEFT BASILIC VEIN. Assessment & Plan - Diagnosis (1) Septic arthritis of knee, left Qualifiers: Septic arthritis organism: due to other bacteria Qualified Code(s): M00.862 - Arthritis due to other bacteria, left knee Is this a current diagnosis for this admission?: YesPlan: Discussed with ID at night and and they recommend transition to clindamycin 600 IV q. 8 for 3 weeks and then orally for 3 weeks if patient is improved. If not she will require an additional 3 weeks of IV clindamycin. Patient has Clostridium perfringens. Will have patient follow with Dr. Jimenez of ID. (2) BANDAR (obstructive sleep apnea) Is this a current diagnosis for this admission?: YesPlan: Patient may use home CPAP (3) Asthma Qualifiers: Asthma severity: unspecified severity Asthma complication type: uncomplicated Qualified Code(s): J45.909 - Unspecified asthma, uncomplicated Is this a current diagnosis for this admission?: YesPlan: Resume patient's home medications. As needed albuterol (4) HTN (hypertension) Qualifiers: Hypertension type: essential hypertension Qualified Code(s): I10 - Essential (primary) hypertension Is this a current diagnosis for this admission?: YesPlan: May resume lisinopril on discharge. (5) ARF (acute renal failure) Qualifiers: Acute renal failure type: unspecified Qualified Code(s): N17.9 - Acute kidney failure, unspecified Is this a current diagnosis for this admission?: YesPlan: Patient with acute renal failure likely secondary to dehydration. Improved. (6) Dehydration Is this a current diagnosis for this admission?: YesPlan: Resolved (7) Morbid obesity with BMI of 50.0-59.9, adult Is this a current diagnosis for this admission?: Yes (8) DVT prophylaxis Is this a current diagnosis for this admission?: Yes (9) Anemia Qualifiers: Anemia type: iron deficiency Iron deficiency anemia type: unspecified iron deficiency Qualified Code(s): D50.9 - Iron deficiency anemia, unspecified Is this a current diagnosis for this admission?: YesPlan: Patient has iron deficiency anemia as well as anemia of chronic disease. Additionally patient likely has a component of postoperative blood loss anemia. Recommend strongly that this is continued to be followed by the primary team and patient transfused if her hemoglobin falls below 8. (10) Impaired fasting glucose Is this a current diagnosis for this admission?: Yes - Time Time Spent with patient: 25-34 minutes Medications reviewed and adjusted accordingly: Yes - Plan Summary Plan Summary: We appreciate the opportunity to work with our orthopedic colleagues on this most interesting case. At this time we will sign off and are available for reconsultation if needed. This plan was discussed with the orthopedics team today.
[2017-05-01 16:14] VITALS: BP 138/57
[2017-05-01] MEDS ORDERED: LACTOBACILLUS ACIDOPHILUS 250 MG TAB PO SCH (18:00)
[2017-05-01] MEDS ORDERED: SIMVASTATIN 10 MG TABLET PO SCH (18:00)
== END 2017-05-01 16:45 | DRG 485 ==
LOC: ER 06:39 → OROUT 08:26 → UNDOADMIN 08:26 → EH 08:26 → ER 08:26 → EH 09:54 → 4S 09:54 → OROUT 09:54 → 4S 04-28 15:00 → OROUT 05-01 16:15 → 4S 05-01 16:15 → UNDODISIN 05-01 16:15
PROVIDERS: ADMIT Orthopaedic Surgery; ATTEND Orthopaedic Surgery
PROC: 0SUW09Z Supplement Left Knee Joint, Tibial Surface with Liner, Open Approach (ICD-10-PCS; 2017-04-28)
PROC: 0SPD09Z Removal of Liner from Left Knee Joint, Open Approach (ICD-10-PCS; principal; 2017-04-28 14:30)
PROC: 02HV33Z Insertion of Infusion Device into Superior Vena Cava, Percutaneous Approach (ICD-10-PCS; 2017-04-29)
PROC: B518ZZA Fluoroscopy of Superior Vena Cava, Guidance (ICD-10-PCS; 2017-04-29)
PROC: B548ZZA Ultrasonography of Superior Vena Cava, Guidance (ICD-10-PCS; 2017-04-29)
PROC: 5A09357 Assistance with Respiratory Ventilation, Less than 24 Consecutive Hours, Continuous Positive Airway Pressure (ICD-10-PCS; 2017-04-29)
DX: T84.54XA Infection and inflammatory reaction due to internal left knee prosthesis, initial encounter (principal); N17.0 Acute kidney failure with tubular necrosis; Z68.43 Body mass index [BMI] 50.0-59.9, adult; L03.116 Cellulitis of left lower limb; E66.01 Morbid (severe) obesity due to excess calories; J45.909 Unspecified asthma, uncomplicated; E78.5 Hyperlipidemia, unspecified; I10 Essential (primary) hypertension; G47.33 Obstructive sleep apnea (adult) (pediatric); E86.0 Dehydration; D50.9 Iron deficiency anemia, unspecified; R73.01 Impaired fasting glucose; B96.7 Clostridium perfringens [C. perfringens] as the cause of diseases classified elsewhere; Z88.6 Allergy status to analgesic agent; Z79.899 Other long term (current) drug therapy; Z96.653 Presence of artificial knee joint, bilateral; Z87.891 Personal history of nicotine dependence; Z80.9 Family history of malignant neoplasm, unspecified
CPT/HCPCS: 01402; 36415; 36569; 76937; 77001; 80048; 80053; 82550; 82607; 82728; 82746; 83036; 83540; 83550; 84466; 85025; 85027; 85045; 85610; 85652; 85730; 86140; 87040; 87070; 87075; 87077; 87205; 96374; 99291; C9290; G8978-GP; G8979-GP; J1170; J1642; J2020; J2250; J2270; J2405; J2543; J2704; J3010; J3370; J3490; J7030; J7120

== ENCOUNTER 2017-06-18 12:08 | Emergency (ER) | payer MEDICARE, OTHER ==
[2017-06-18] MEDS ORDERED: APIXABAN 5 MG TABLET PO ONE (12:38)
--- NOTE | 2017-06-18 13:25 | ER Document Report ---
ED Extremity Problem, Lower - General Chief Complaint: Leg Pain Stated Complaint: POSSIBLE BLOOD CLOT Time Seen by Provider: 06/18/17 12:37 Mode of Arrival: Wheelchair Information source: Patient Notes: Patient presents with left leg pain. Left leg has been swollen and red since a knee surgery approximately 2 months ago. Today her primary care doctor sent her for an ultrasound. Ultrasound shows a DVT. Patient was referred here for care. Patient states pain is constant and radiates on the left leg. It is worse with movement and better with rest. I did speak with patient's primary care physician who states he is already called in orders for Xarelto. Patient denies any chest pain or shortness of breath. TRAVEL OUTSIDE OF THE [place] IN LAST 30 DAYS: No - Related Data Allergies/Adverse Reactions: aspirin [Aspirin] Allergy (Verified 04/01/17 11:41) Unsure Past Medical History - General Information source: Patient - Social History Smoking Status: Never Smoker Frequency of alcohol use: None Drug Abuse: None Family History: Reviewed & Not Pertinent, Malignancy - Past Medical History Cardiac Medical History: Reports: Hx Hypercholesterolemia, Hx Hypertension Denies: Hx Atrial Fibrillation, Hx Congestive Heart Failure, Hx Coronary Artery Disease, Hx Heart Attack, Hx Peripheral Vascular Disease, Hx Pulmonary Embolism, Hx Heart Murmur Pulmonary Medical History: Reports: Hx Asthma, Hx Bronchitis, Hx Sleep Apnea Denies: Hx COPD, Hx Pneumonia, Hx Respiratory Failure, Hx Tuberculosis Renal/ Medical History: Denies: Hx End Stage Renal Disease, Hx Kidney Stones, Hx Peritoneal Dialysis Malignancy Medical History: Denies: Hx Lung Cancer Musculoskeltal Medical History: Reports Hx Arthritis, Denies Hx Fibromyalgia, Denies Hx Muscular Dystrophy Traumatic Medical History: Reports: Hx Fractures - left? foot Past Surgical History: Reports: Hx Orthopedic Surgery - Rigoberto knee replacement, left knee replacement 04/13/17, Hx Tonsillectomy. Denies: Hx Appendectomy, Hx Bowel Surgery, Hx Section, Hx Cholecystectomy, Hx Coronary Artery Bypass Graft, Hx Gastric Bypass Surgery, Hx Herniorrhaphy, Hx Hysterectomy, Hx Mastectomy, Hx Pacemaker, Hx Tubal Ligation - Immunizations Hx Diphtheria, Pertussis, Tetanus Vaccination: Yes Review of Systems - Review of Systems Constitutional: denies: Chills, Fever Cardiovascular: denies: Chest pain, Palpitations Respiratory: denies: Cough, Short of breath Physical Exam - General General appearance: Appears well, Alert - Respiratory Respiratory status: No respiratory distress Chest status: Nontender Breath sounds: Normal Chest palpation: Normal - Cardiovascular Rhythm: Regular Heart sounds: Normal auscultation Murmur: No - Extremities General upper extremity: Normal inspection General lower extremity: Tender, Edema. No: Normal color - Skin Skin Temperature: Warm Skin Moisture: Dry Skin Color: Erythema - Patient left lower extremity has a healing surgical scar on the left knee anteriorly. There is some mild warmth and redness with some mild tenderness. Discharge - Discharge Clinical Impression: Left leg DVT Condition: Stable Disposition: HOME, SELF-CARE Instructions: DVT Outpatient Treatment ([facility]) Additional Instructions: Your family doctor has already called in a prescription for Xarelto to your pharmacy. Please take as directed. Please call your family doctor, Dr. Hobson , today to arrange for follow-up. Referrals: ISABELL HOBSON MD [NO LOCAL MD] - Follow up as needed
[2017-06-18 13:31] VITALS: BP 127/61
== END 2017-06-18 13:30 | disposition home or self-care (01) ==
LOC: ER 12:08
DX: I82.402 Acute embolism and thrombosis of unspecified deep veins of left lower extremity (principal); I10 Essential (primary) hypertension; J45.909 Unspecified asthma, uncomplicated; Z96.653 Presence of artificial knee joint, bilateral; Z88.6 Allergy status to analgesic agent
CPT/HCPCS: 99283; 93971 ×2; A9270

== ENCOUNTER → 2017-06-18 | Outpatient (CLI) | payer MEDICARE, OTHER ==
--- NOTE | 2017-06-18 12:20 | XCELERA REPORT ---
[address] [address] Lower Extremity Venous Evaluation Name: LILIA HERNANDEZ Age: 66 yrs Gender: Female : 1950 Patient Status: Outpatient Patient Location: Study Date: 06/18/2017 11:20 AM Procedure: Color flow and duplex imaging of the veins of the left lower extremity as well as the right Common Femoral vein. Reason For Study: LLE SWELLING Ordering Physician: ISABELL THAYER Performed By: Benson Lynn Right Sided Venous Evaluation The right common femoral vein is fully compressible. Spontaneous and phasic flow is present in the right common femoral vein. Left Sided Venous Evaluation Abnormal vessel filling, no compression and minimal Colour flow in the Common Femoral and proximal Femoral vein. Difficult to image leg veins due to body habitus. Critical Findings Called Dr Thayer at 1157. Patient to go to his office at once. The patient says she is unable to travel due to difficulty. We will send her to the ER for disposition. Interpretation Summary Common Femoral deep venous thrombosis, probably fresh. The patient will be taken to the Emergency room for disposition. : ISABELL THAYER > Chiki Rogers
== END ==
LOC: SP 11:06
PROVIDERS: ATTEND Family Medicine
DX: M79.89 Other specified soft tissue disorders (principal)
CPT/HCPCS: 93971

== ENCOUNTER → 2019-01-18 | Outpatient (CLI) | payer MEDICARE ==
--- NOTE | 2019-01-18 14:52 | WOMENS IMAGING REPORT ---
EXAM DESCRIPTION: BILAT SCREENING MAMMO W/CAD COMPLETED DATE/TIME: 01/18/2019 1:52 pm REASON FOR STUDY: Z12.31 ENCOUNTER FOR SCREENING MAMMOGRAM FOR MALIGNANT NEOPLASM OF VACAOMS32.31 E NCNTR SCREEN MAMMOGRAM FOR MALIGNANT NEOPLASM OF ZACH COMPARISON: 07/08/2016 and 06/28/2015. TECHNIQUE: Standard craniocaudal and mediolateral oblique views of each breast recorded using [employer] acquisition. LIMITATIONS: None. FINDINGS: RIGHT BREAST MASSES: No suspicious masses. CALCIFICATIONS: No new or suspicious calcifications. ARCHITECTURAL DISTORTION: None. DEVELOPING DENSITY: Possible small developing density in the retroareolar breast, located 1.5 cm post erior to the nipple. ASYMMETRY: None noted. OTHER: No other significant findings. LEFT BREAST MASSES: No suspicious masses. CALCIFICATIONS: No new or suspicious calcifications. ARCHITECTURAL DISTORTION: None. DEVELOPING DENSITY: None. ASYMMETRY: None noted. OTHER: No other significant findings. Read with the assistance of CAD. .[facility] - R2 [employer] Version 1.3 .[facility] - R2 Cenova Version 1.3 .[facility] - R2 Cenova Version 2.4 .[facility]2 Cenova Version 2.4 .[facility] - R2 [employer] Nozzle Worker Version 9.2 IMPRESSION: Possible small developing density in the retroareolar right breast. Stable mammographic appearance of the left breast. BREAST DENSITY: a. The breasts are almost entirely fatty. BIRAD: 0 Incomplete: Needs Additional Imaging Evaluation and/or prior Mammograms for Comparison. RECOMMENDATION: RECOMMENDED FOLLOW-UP: Recommend additional evaluation with compression views of the right breast and ultrasound of the right breast. Recommend routine screening mammography of the lef t breast. The patient will be contacted for additional imaging. COMMENT: The patient has been notified of the results by letter per SA requirements. Additional no tification policies are in place for contacting patient with suspicious or incomplete findings. Quality ID #[id number]: The [employer] recommends an annual screening mammogram for women aged 40 years or over. This facility utilizes a reminder system to ensure that all patients receive reminder letters, and/or direct phone calls for appointments. This includes reminders for routine scr eening mammograms, diagnostic mammograms, or other Breast Imaging Interventions when appropriate. Th is patient will be placed in the appropriate reminder system. The [employer] (ACR) has developed recommendations for screening MRI of the breast s in certain patient populations, to be used in conjunction with mammography. Breast MRI surveillanc e may be appropriate for women with more than 20% lifetime risk of developing breast cancer as deter mined by genetic testing, significant family history of the disease, or history of mantle radiation f or Hodgkins Disease. ACR Practice Guidelines 2008. TECHNICAL DOCUMENTATION: FINDING NUMBER: (1) ASSESSMENT: (1) JOB ID: [id number] [employer]- All Rights Reserved Reading location - IP/workstation name: [email or web address]
== END ==
LOC: WI 13:07
PROVIDERS: ATTEND Nurse Practitioner Primary Care
DX: Z12.31 Encounter for screening mammogram for malignant neoplasm of breast (principal); R92.2 Inconclusive mammogram
CPT/HCPCS: 77067

== ENCOUNTER → 2019-02-01 | Outpatient (CLI) | payer MEDICARE ==
--- NOTE | 2019-02-01 14:28 | WOMENS IMAGING REPORT ---
EXAM DESCRIPTION: RIGHT DIAGNOSTIC MAMMO W/CAD; U/S BREAST UNILAT LIMITED COMPLETED DATE/TIME: 02/01/2019 12:59 pm; 02/01/2019 1:26 pm REASON FOR STUDY: N63.41; RT BREAST DENSITY N63.41 UNSPECIFIED LUMP IN RIGHT BREAST, SUBAREOLAR COMPARISON: Multiple since 2008 TECHNIQUE: Cone compression craniocaudal and mediolateral oblique images of the breast recorded with digital acquisition. Right breast 90 mediolateral view. Right breast ultrasound was also performed. LIMITATIONS: None. FINDINGS: BREAST LATERALITY: Right MASSES: In the right retroareolar region, a 2 mm mammographic nodule persists on today's cone ivan sean views CALCIFICATIONS: No new or suspicious calcifications. ARCHITECTURAL DISTORTION: None. DEVELOPING DENSITY: None. ASYMMETRY: None noted. OTHER: No other significant findings. Read with the assistance of CAD. .[facility] - R2 [employer]ist Version 9.2 Right breast ultrasound: Ultrasound of the right retroareolar region was performed. 2.5 mm simple cyst is present. IMPRESSION: No mammographic or sonographic evidence for malignancy right breast BREAST DENSITY: a. The breasts are almost entirely fatty. BIRAD: 2 Benign findings. RECOMMENDATION: RECOMMENDED FOLLOW UP: Continue yearly bilateral screening mammography SPECIFIC INTERVENTION/IMAGING/CONSULTATION RECOMMENDED:No additional intervention/ imaging/consultati on needed at this time. COMMUNICATION:Patient notified by letter COMMENT: The patient has been notified of the results by letter per SA requirements. Additional no tification policies are in place for contacting patient with suspicious or incomplete findings. Quality ID #[id number]: The [employer] recommends an annual screening mammogram for women aged 40 years or over. This facility utilizes a reminder system to ensure that all patients receive reminder letters, and/or direct phone calls for appointments. This includes reminders for routine scr eening mammograms, diagnostic mammograms, or other Breast Imaging Interventions when appropriate. Th is patient will be placed in the appropriate reminder system. TECHNICAL DOCUMENTATION: FINDING NUMBER: (1) ASSESSMENT: (1) JOB ID: [id number] [employer]- All Rights Reserved Reading location - IP/workstation name: [email or web address]
--- NOTE | 2019-02-01 14:28 | WOMENS IMAGING REPORT ---
EXAM DESCRIPTION: RIGHT DIAGNOSTIC MAMMO W/CAD; U/S BREAST UNILAT LIMITED COMPLETED DATE/TIME: 02/01/2019 12:59 pm; 02/01/2019 1:26 pm REASON FOR STUDY: N63.41; RT BREAST DENSITY N63.41 UNSPECIFIED LUMP IN RIGHT BREAST, SUBAREOLAR COMPARISON: Multiple since 2008 TECHNIQUE: Cone compression craniocaudal and mediolateral oblique images of the breast recorded with digital acquisition. Right breast 90 mediolateral view. Right breast ultrasound was also performed. LIMITATIONS: None. FINDINGS: BREAST LATERALITY: Right MASSES: In the right retroareolar region, a 2 mm mammographic nodule persists on today's cone ivan sean views CALCIFICATIONS: No new or suspicious calcifications. ARCHITECTURAL DISTORTION: None. DEVELOPING DENSITY: None. ASYMMETRY: None noted. OTHER: No other significant findings. Read with the assistance of CAD. .[facility] - R2 [employer] Press Operator Version 9.2 Right breast ultrasound: Ultrasound of the right retroareolar region was performed. 2.5 mm simple cyst is present. IMPRESSION: No mammographic or sonographic evidence for malignancy right breast BREAST DENSITY: a. The breasts are almost entirely fatty. BIRAD: 2 Benign findings. RECOMMENDATION: RECOMMENDED FOLLOW UP: Continue yearly bilateral screening mammography SPECIFIC INTERVENTION/IMAGING/CONSULTATION RECOMMENDED:No additional intervention/ imaging/consultati on needed at this time. COMMUNICATION:Patient notified by letter COMMENT: The patient has been notified of the results by letter per SA requirements. Additional no tification policies are in place for contacting patient with suspicious or incomplete findings. Quality ID #[id number]: The [employer] recommends an annual screening mammogram for women aged 40 years or over. This facility utilizes a reminder system to ensure that all patients receive reminder letters, and/or direct phone calls for appointments. This includes reminders for routine scr eening mammograms, diagnostic mammograms, or other Breast Imaging Interventions when appropriate. Th is patient will be placed in the appropriate reminder system. TECHNICAL DOCUMENTATION: FINDING NUMBER: (1) ASSESSMENT: (1) JOB ID: [id number] [employer]- All Rights Reserved Reading location - IP/workstation name: [email or web address]
== END ==
LOC: WI 12:03
PROVIDERS: ATTEND Nurse Practitioner Primary Care
DX: N63.41 Unspecified lump in right breast, subareolar (principal)
CPT/HCPCS: 76642

== ENCOUNTER → 2020-03-02 | Outpatient (CLI) | payer MEDICAID, MEDICARE ==
--- NOTE | 2020-03-02 13:13 | WOMENS IMAGING REPORT ---
EXAM DESCRIPTION: BILAT SCREENING MAMMO W/CAD IMAGES COMPLETED DATE/TIME: 03/02/2020 11:31 am REASON FOR STUDY: Z12.31 SCREENING MAMMO Z12.31 ENCNTR SCREEN MAMMOGRAM FOR MALIGNANT NEOPLASM OF B RE COMPARISON: 2013 and subsequent EXAM PARAMETERS: Standard craniocaudal and mediolateral oblique views of each breast recorded using digital acquisition. Read with the assistance of CAD. .[facility] - [employer] Loan Administrator Version 9.2 LIMITATIONS: None. FINDINGS: No suspicious masses, suspicious calcifications or architectural distortion. No areas of c oncern. IMPRESSION: NEGATIVE MAMMOGRAM. BIRADS 1 BREAST DENSITY: a. The breasts are almost entirely fatty. BIRAD: ASSESSMENT: 1 NEGATIVE RECOMMENDATION: ROUTINE SCREENING COMMENT: The patient has been notified of the results by letter per MQSA requirements. Additional no tification policies are in place for contacting patient with suspicious or incomplete findings. Quality ID #[id number]: The [employer] recommends an annual screening mammogram for women aged 40 years or over. This facility utilizes a reminder system to ensure that all patients receive reminder letters, and/or direct phone calls for appointments. This includes reminders for routine scr eening mammograms, diagnostic mammograms, or other Breast Imaging Interventions when appropriate. Th is patient will be placed in the appropriate reminder system. TECHNICAL DOCUMENTATION: FINDING NUMBER: (1) ASSESSMENT: (1) JOB ID: [id number] [employer]- All Rights Reserved Reading location - IP/workstation name: [email or web address]
== END ==
LOC: WI 10:55
PROVIDERS: ATTEND Nurse Practitioner Family
DX: Z12.31 Encounter for screening mammogram for malignant neoplasm of breast (principal)
CPT/HCPCS: 77067